=== PATIENT | male | born 1960 | race Caucasian/White ===

== ENCOUNTER → 2017-12-22 | Outpatient (CLI) | payer MEDICARE ==
[~2017-12-22] MED LIST: ASCO1ER; ASPI81EC PO; AZAT50 PO; AZATHIOPRINE 50 MG; AZATHIOPRINE PO; Ativan1 MG SL; BACL10; BACL10 PO; BACL20 PO; BACPOLTO; BISA5EC; BISA5EC PO; Bactrim Ds Tab1 EACH PO; CELE200 PO; CEPH500 PO; CLON.5; CLON1 PO; CLON2; CYCL10 PO; DILANTIN; DULO30; DULO60 PO; ENOX100I; ENOX120I SC; ENOX120I SQ; ENOX80I; ENOX80I SQ; ERGO400 PO; ESCI10; FLUT.05NI; HYDACE10B PO; HYDACE5 PO; HYDACE5325 PO; HYDR1TAB94 PO; ISON300; KLONOPIN; LEVE500 PO; LOVENOX; META800 PO; MULVITA; NORT25 PO; Norco 5-325 Ta1 EACH PO; OMEPRAZOLE MAGN20 MG PO; OXYACE5T PO; OXYC5; PHENY100ER; PHENY100ER PO; PRED20; PRED5; PREDNISONE; PREDNISONE 10 MG; PROC10; PYRI100; PYRI100 PO; PYRI50; RANI150; RANI150 PO; ROZEREM; RXOXYACE PO; TOPI100 PO; TOPI25C PO; TRAZ100; TRAZ100 PO; TRAZ50; TRAZ50 PO; TRAZODONE 100 MG; Vitamin C1000 M1 PO; WARF10; [UNRECOGNIZED DRUG - OTHER]; [UNRECOGNIZED DRUG - OTHER]; [UNRECOGNIZED DRUG - OTHER]; [UNRECOGNIZED DRUG - REMARK]
== END | disposition home or self-care (01) ==
LOC: LAB 14:45
DX: L03.312 Cellulitis of back [any part except buttock and flank] (principal)
CPT/HCPCS: 87070; 87205

== ENCOUNTER 2018-10-04 15:41 | Emergency (ER) | payer MEDICARE ==
[~2018-10-04] VITALS: Ht 180.3 cm; Wt 91.2 kg
== END 2018-10-04 16:45 | disposition home or self-care (01) ==
LOC: ER 15:41
DX: S62.306D Unspecified fracture of fifth metacarpal bone, right hand, subsequent encounter for fracture with routine healing (principal); X58.XXXD Exposure to other specified factors, subsequent encounter; Z88.6 Allergy status to analgesic agent; Z88.8 Allergy status to other drugs, medicaments and biological substances; Z79.899 Other long term (current) drug therapy; Z87.891 Personal history of nicotine dependence
CPT/HCPCS: 29125; 99282-25

== ENCOUNTER 2019-05-02 09:23 | Emergency (ER) | payer MEDICARE ==
[~2019-05-02] VITALS: Ht 177.8 cm; Wt 84.8 kg
[2019-05-02] MEDS ORDERED: Keflex500 MG PO (11:46)
== END 2019-05-02 11:55 | disposition home or self-care (01) ==
LOC: ER 09:23
DX: M79.89 Other specified soft tissue disorders (principal); Z88.6 Allergy status to analgesic agent; Z79.899 Other long term (current) drug therapy; Z87.891 Personal history of nicotine dependence
CPT/HCPCS: 93971; 99283-25

== ENCOUNTER 2019-07-25 09:55 | Emergency (ER) | payer MEDICARE ==
[~2019-07-25] VITALS: Ht 175.3 cm; Wt 83.9 kg
[~2019-07-25 09:55] MED LIST changes: +Keflex500 MG PO
[2019-07-25 10:59] LABS: BASOPHILS ABSOLUTE AUTO 0.01 K/mm3 (0.00-0.23); BASOPHILS PERCENT AUTO 0 % (0-2); EOSINOPHILS ABSOLUTE AUTO 0.01 K/mm3 (0.00-0.68); EOSINOPHILS PERCENT AUTO 0 % (0-6); Hematocrit 45.2 % (37.0-53.0); Hemoglobin 14.6 g/dL (13.5-17.5); IMMATURE GRAN ABSOLUTE AUTO 0.01 K/mm3 (0.00-0.10); IMMATURE GRAN PERCENT AUTO 0 % (0-1); LYMPHOCYTES ABSOLUTE AUTO 1.14 K/mm3 (0.84-5.20); LYMPHOCYTES PERCENT AUTO 20 % (21-46); MONOCYTES ABSOLUTE AUTO 0.44 K/mm3 (0.16-1.47); MONOCYTES PERCENT AUTO 8 % (4-13); Mean Corpuscular HGB 29.3 pg (26.0-34.0); Mean Corpuscular HGB Conc 32.3 g/dL (31.5-36.5); Mean Corpuscular Volume 91 fL (80-100); Mean Platelet Volume 10.2 fL (9.1-12.4); NEUTROPHILS ABSOLUTE AUTO 4.17 K/mm3 (1.96-9.15); NEUTROPHILS PERCENT AUTO 72 % (41-73); Platelet Count 121 K/mm3 (150-400); RDW Coefficient Variation 15.6 % (11.7-14.2); RDW Standard Deviation 51.8 fL (35.1-46.3); Red Blood Cell Count 4.99 M/mm3 (4.30-5.90); White Blood Cell Count 5.78 K/mm3 (4.00-11.30)
[2019-07-25 11:13] LABS: Alanine Aminotransfer (ALT/SGP 21 U/L (12-78); Albumin, Blood 4.5 g/dL (3.4-5.0); Albumin/Globulin Ratio 1.6 (0.8-1.8); Alk Phos 62 U/L (50-136); Anion Gap 7 mmol/L (6-16); Aspartate Aminotrans (AST/SGOT 23 U/L (12-37); Bilirubin, Total 0.7 mg/dL (0.1-1.0); Blood Urea Nitrogen 17 mg/dL (8-24); Bun/Creatinine Ratio 17.8 (12.0-20.0); CO2, Blood 23 mmol/L (21-32); Calcium, Blood 9.1 mg/dL (8.5-10.1); Chloride, Blood 110 mmol/L (98-108); Creatinine, Blood 0.95 mg/dL (0.60-1.20); Globulin, Blood 2.8 g/dL (2.2-4.0); Glomerular Filtration Rate >60 (60-); Glucose, Blood 97 mg/dL (70-99); Potassium, Blood 3.7 mmol/L (3.5-5.5); Sodium, Blood 140 mmol/L (136-145); Total Protein, Blood 7.3 g/dL (6.4-8.2)
[2019-07-25 17:09] LABS: Source, Urine Clean Catch
[2019-07-25 17:14] LABS: Bilirubin, Urine Neg (Neg); Blood, Urine 4+ (Neg); Glucose Qualitative, Urine Neg (Neg); Ketones, Urine 3+ (Neg); Leukocyte Esterase, Urine 1+ (Neg); Nitrite, Urine Neg (Neg); Protein, Urine 1+ (Neg); Urobilinogen, Urine NORM (Normal)
[2019-07-25 17:19] LABS: Appearance, Urine Clear (Clear); Color, Urine Yellow (P-Yellow)
[2019-07-25 17:20] LABS: Mucus Light (0-Heavy)
[2019-07-25 17:21] LABS: Bacteria Few /hpf; Squamous Epithelial Cells Rare /hpf (Few)
[2019-07-25] MEDS ORDERED: ONDA4ODT MM (18:27)
[2019-07-25] MEDS ORDERED: Norco 5-325 Ta1 EACH PO (18:27)
== END 2019-07-25 18:59 | disposition home or self-care (01) ==
LOC: ER 09:55
PROVIDERS: Emergency Medicine
DX: M35.2 Behcet's disease (principal); R10.9 Unspecified abdominal pain; I82.221 Chronic embolism and thrombosis of inferior vena cava; Z87.891 Personal history of nicotine dependence; Z88.6 Allergy status to analgesic agent; Z88.8 Allergy status to other drugs, medicaments and biological substances; Z79.899 Other long term (current) drug therapy
CPT/HCPCS: 36415; 74174; 80053; 81001; 83605; 83690; 85025; 87040; 87086; 93005; 93010; 96361; 96374-59; 99284-25; J3010; J7030; Q9967

== ENCOUNTER 2019-10-25 10:10 | Inpatient (IN) | payer MEDICARE ==
[~2019-10-25] VITALS: Ht 177.8 cm; Wt 66.0 kg
[~2019-10-25 10:10] MED LIST changes: -ENOX120I SC; +ENOX80I SC; +ONDA4ODT MM
[2019-10-25 10:31] LABS: BASOPHILS ABSOLUTE AUTO 0.01 K/mm3 (0.00-0.23); BASOPHILS PERCENT AUTO 0 % (0-2); EOSINOPHILS PERCENT AUTO 0 % (0-6); Hematocrit 45.9 % (37.0-53.0); Hemoglobin 15.2 g/dL (13.5-17.5); IMMATURE GRAN ABSOLUTE AUTO 0.05 K/mm3 (0.00-0.10); IMMATURE GRAN PERCENT AUTO 0 % (0-1); LYMPHOCYTES ABSOLUTE AUTO 0.58 K/mm3 (0.84-5.20); LYMPHOCYTES PERCENT AUTO 5 % (21-46); MONOCYTES ABSOLUTE AUTO 0.59 K/mm3 (0.16-1.47); MONOCYTES PERCENT AUTO 5 % (4-13); Mean Corpuscular HGB 29.4 pg (26.0-34.0); Mean Corpuscular HGB Conc 33.1 g/dL (31.5-36.5); Mean Corpuscular Volume 89 fL (80-100); Mean Platelet Volume 10.9 fL (9.1-12.4); NEUTROPHILS ABSOLUTE AUTO 11.54 K/mm3 (1.96-9.15); NEUTROPHILS PERCENT AUTO 90 % (41-73); Platelet Count 134 K/mm3 (150-400); RDW Coefficient Variation 16.3 % (11.7-14.2); RDW Standard Deviation 53.1 fL (35.1-46.3); Red Blood Cell Count 5.17 M/mm3 (4.30-5.90); White Blood Cell Count 12.77 K/mm3 (4.00-11.30)
[2019-10-25 10:44] LABS: Prothrombin Time Results 10.7 Sec (9.7-11.5)
[2019-10-25 10:53] LABS: Ethanol (Alcohol), Blood, Med 139 mg/dL
[2019-10-25] MEDS ORDERED: TAMSULOSIN HCL0.4 M1 PO (10:53)
[2019-10-25 10:54] LABS: Alanine Aminotransfer (ALT/SGP 30 U/L (12-78); Albumin, Blood 4.1 g/dL (3.4-5.0); Albumin/Globulin Ratio 1.3 (0.8-1.8); Alk Phos 67 U/L (50-136); Anion Gap 12 mmol/L (6-16); Aspartate Aminotrans (AST/SGOT 54 U/L (12-37); Bilirubin, Total 0.6 mg/dL (0.1-1.0); Blood Urea Nitrogen 16 mg/dL (8-24); Bun/Creatinine Ratio 17.2 (12.0-20.0); CO2, Blood 19 mmol/L (21-32); Calcium, Blood 8.5 mg/dL (8.5-10.1); Chloride, Blood 109 mmol/L (98-108); Creatinine, Blood 0.93 mg/dL (0.60-1.20); Globulin, Blood 3.1 g/dL (2.2-4.0); Glomerular Filtration Rate >60 (60-); Glucose, Blood 90 mg/dL (70-99); Sodium, Blood 140 mmol/L (136-145); Total Protein, Blood 7.2 g/dL (6.4-8.2)
[2019-10-25 12:41] LABS: Source, Urine Clean Catch
[2019-10-25 12:50] LABS: Bilirubin, Urine Neg (Neg); Blood, Urine 5+ (Neg); Glucose Qualitative, Urine Neg (Neg); Ketones, Urine 3+ (Neg); Leukocyte Esterase, Urine Neg (Neg); Nitrite, Urine Neg (Neg); Protein, Urine 1+ (Neg); Urobilinogen, Urine NORM (Normal)
[2019-10-25 13:01] LABS: Appearance, Urine Clear (Clear); Color, Urine Yellow (P-Yellow)
[2019-10-25 13:03] LABS: White Blood Cells, Urine 0-2 /hpf (0-5)
[2019-10-25 13:04] LABS: Bacteria Few /hpf; Squamous Epithelial Cells Rare /hpf (Few)
[2019-10-25 14:02] LABS: U Amphetamine Screen Not Detected; U Barbituate Screen Not Detected; U Methamphetamine Screen Not Detected
[2019-10-25 14:03] LABS: U Benzodiazapine Screen Not Detected; U Buprenorphine Screen Not Detected; U Cannabinoids Screen DETECTED; U Cocaine Screen Not Detected; U Methadone Screen Not Detected; U Opiates Screen Not Detected; U Oxycodone Screen Not Detected; U Phencyclidine Screen Not Detected; U Propoxyphene Screen Not Detected
[2019-10-25] MEDS ORDERED: Percocet 5-3251 EACH PO (14:04)
[2019-10-25] MEDS ORDERED: BUSP5 PO (14:24)
[2019-10-25] MEDS ORDERED: ATORVASTATIN CA40 MG PO (14:24)
[2019-10-25] MEDS ORDERED: BACL10 PO (14:25)
[2019-10-25] MEDS ORDERED: TRAZ150T57 PO (14:26)
[2019-10-25] MEDS ORDERED: Zantac150 MG PO (14:26)
--- NOTE | 2019-10-25 19:04 | NUR ---
ARRIVES TO FLOOR ABOUT 1740. ALERT. ORIENTED. DOES NOT KNOW DATE. COOPERATIVE. 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 PICS TAKEN OF BRUISES, ETC. BLIND RT EYE. LEFT EYELIDS SWOLLEN SHUT. STS CAN NOT FEEL EXT. WHEN LT.LEG TOUCHED IS ABLE TO MOVE SLIGHTLY. IS ABLE TO MOVE LEFT ARM SLIGHTLY. PATIENT UNSURE IF HE KNOWNS WHEN HE HAS TO URINATE. REQUEST HICKMAN. UNABLE TO FEEL BUTTONS SHAMPOOER LIGHT EVEN WHEN MONITOR STICKER PLACED SHAMPOOER LIGHT. REPORT TO NIGHT RN
--- NOTE | 2019-10-26 00:49 | NUR ---
PHYSICIAN CORRESPONDENCE APPROX 2100 STATED PATIENT HAD INDWELLING PLACED IN ED WHICH WAS TAKEN OUT R/T POSSIBLE D/C. EXPLAINED THAT PATIENT IS UNABLE TO USE A URINAL BY HIMSELF; IS NOT ABLE TO RELAX LEGS ENOUGH TO GET A URINAL THERE SO HE CAN USE IT. NEW ORDER FOR CONDOM CATH. ALSO EXPLAINED THAT PATIENT IS HAVING DIFFICULTY MOVING LUE IN COORDINATION WITH DIRECTION THAT IS GIVE; PT STATES THAT TYPICALLY HE CAN GET AROUND ON HIS OWN AND DO ALL OF HIS NORMAL ADLS. ON-CALL STATED THAT ATTENDING MAY WANT TO DO AN MRI TOMORROW.
--- NOTE | 2019-10-26 05:16 | NUR ---
SHIFT SUMMARY A/O, ABLE TO MAKE NEEDS KNOWN. COOPERATIVE WITH CARE. UNABLE TO USE CALL MAYBERRY; STATES CANNOT FEEL. C/O PAIN/DISCOMFORT TO NECK/SHOULDERS/ARMS RATED 7-9/10; FACE SCALE 2. SWELLING TO BILATERAL EYES; APPEARS TO HAVE DECREASED. PATIENT UNABLE TO DO ANY ADLS; WILL REQUIRE FEEDINGS/FULL CARE. STATES NEEDS TO VOID; UNABLE TO PLACE URINAL AT AN ANGLE TO WHERE HE CAN VOID, PLACE CONDOM CATH PER ON-CALL ORDERS (FELL OFF). PATIENT IS REQUESTING INDWELLING; EXPLAINED TO PATIENT THAT HE WOULD NEED TO DISCUSS THAT WITH HIS ATTENDING PHYSICIAN TODAY. INCONTINENT EPISODE OF BOWEL. CIWA 6-10 THIS SHIFT. VSS, SLIGHTLY FEBRILE. TELE RUNNING ST @ 108 PER PCU HOUSE VISITOR. BED IN LOWEST POSITION; ALARM ON. CALL LIGHT WITHIN REACH. WCTM. REPORT TO ONCOMING RN.
[2019-10-26 06:18] LABS: Alanine Aminotransfer (ALT/SGP 40 U/L (12-78); Albumin, Blood 3.7 g/dL (3.4-5.0); Albumin/Globulin Ratio 1.3 (0.8-1.8); Alk Phos 57 U/L (50-136); Anion Gap 9 mmol/L (6-16); Aspartate Aminotrans (AST/SGOT 107 U/L (12-37); Bilirubin, Total 0.7 mg/dL (0.1-1.0); Blood Urea Nitrogen 19 mg/dL (8-24); Bun/Creatinine Ratio 20.4 (12.0-20.0); CO2, Blood 18 mmol/L (21-32); Calcium, Blood 8.4 mg/dL (8.5-10.1); Chloride, Blood 113 mmol/L (98-108); Creatinine, Blood 0.93 mg/dL (0.60-1.20); Globulin, Blood 2.8 g/dL (2.2-4.0); Glomerular Filtration Rate >60 (60-); Glucose, Blood 96 mg/dL (70-99); Sodium, Blood 140 mmol/L (136-145); Total Protein, Blood 6.5 g/dL (6.4-8.2)
[2019-10-26 09:18] LABS: BASOPHILS ABSOLUTE AUTO 0.01 K/mm3 (0.00-0.23); BASOPHILS PERCENT AUTO 0 % (0-2); EOSINOPHILS PERCENT AUTO 0 % (0-6); Hemoglobin 14.1 g/dL (13.5-17.5); IMMATURE GRAN ABSOLUTE AUTO 0.03 K/mm3 (0.00-0.10); IMMATURE GRAN PERCENT AUTO 0 % (0-1); LYMPHOCYTES ABSOLUTE AUTO 1.01 K/mm3 (0.84-5.20); LYMPHOCYTES PERCENT AUTO 11 % (21-46); MONOCYTES ABSOLUTE AUTO 0.88 K/mm3 (0.16-1.47); MONOCYTES PERCENT AUTO 9 % (4-13); Mean Corpuscular HGB 29.4 pg (26.0-34.0); Mean Corpuscular HGB Conc 32.8 g/dL (31.5-36.5); Mean Corpuscular Volume 90 fL (80-100); NEUTROPHILS PERCENT AUTO 80 % (41-73); Platelet Count 95 K/mm3 (150-400); RDW Coefficient Variation 16.4 % (11.7-14.2); RDW Standard Deviation 53.9 fL (35.1-46.3); White Blood Cell Count 9.53 K/mm3 (4.00-11.30)
[2019-10-26 10:58] LABS: Source, Urine Catheter
[2019-10-26 11:07] LABS: Bilirubin, Urine Neg (Neg); Blood, Urine 2+ (Neg); Glucose Qualitative, Urine Neg (Neg); Ketones, Urine 4+ (Neg); Leukocyte Esterase, Urine Neg (Neg); Nitrite, Urine Neg (Neg); Protein, Urine Neg (Neg); Urobilinogen, Urine NORM (Normal)
[2019-10-26 11:53] LABS: Appearance, Urine Clear (Clear); Color, Urine Yellow (P-Yellow)
[2019-10-26 11:54] LABS: Bacteria Not Seen /hpf; Squamous Epithelial Cells Not Seen /hpf (Few)
--- NOTE | 2019-10-26 17:54 | NUR ---
PT HAS BEEN ALERT AND ORIENTED THROUGHOUT THIS SHIFT. PT HAD FAMILY IN THE ROOM FOR MUCH OF THE AFTERNOON. PT HAS HX OF STROKE AND HAS LIMITED USE OF HIS LEFT SIDE AT BASELINE. PT'S RIGHT ARM IS VERY RIGID AND PT HAS NO USE OF IT AT THIS TIME. HICKMAN CATHETER PLACED THIS SHIFT PER ORDERS FOR RETENTION, BLADDER SCAN >999 ML, OUTPUT 1400 ML UPON INSERTION. PT CONTINUES TO HAVE SEVERE PAIN IN HIS SHOULDERS AND HAS BEEN UNCOMFORTABLE FOR MOST OF THIS SHIFT. PT REPOSITIONED FREQUENTLY ATTEMPTING TO FIND COMFORT FOR THE PT. PT CURRENTLY ASLEEP IN BED.
--- NOTE | 2019-10-26 17:59 | NUR ---
Initial spiritual care note: Ike was talkative and expressive. He has a great deal of christianity remorse and spiritual questioning. Has been most recently affiliated with the [facility]. His suddenly several years ago. He had a stroke shortly after this loss and could not longer work. He has been living with his mom since. He is grieving loss of spouse, mobility, and sense of purpose. Ike responded well to gentle drapery counselor/spiritual direction. Our visit ended when family arrived and Tony asked me to return tomorrow.
--- NOTE | 2019-10-27 04:38 | NUR ---
SHIFT SUMMARY A/O, ABLE TO MAKE NEEDS KNOWN. COOPERATIVE WITH CARE. STILL UNABLE TO MOVE EXTREMITIES ON DEMAND; REMAINS UNABLE TO USE CALL LIGHT. C/O PAIN/DISCOMFORT TO SHOULDERS/ARMS; MEDICATED PER EMAR. APPEARED TO REST MUCH OF SHIFT. THIS AM DURING REPOSITIONING; NOTED RASH TO TRUNK/BACK, ARMPITS, AND GROIN REGION. HAS BEEN SWEATING OFF AND OF FOR A COUPLE OF DAYS. STATES DOES NOT ITCH AND IS TYPICALLY NOT ALLERGIC TO ANYTHING. CONSULTED WATCH TRAIN INSPECTOR WHOM STATED TO HAVE ATTENDING ADDRESS. NO ACUTE CHANGES NOTED OVERNIGHT. VSS/AFEBRILE. SLIGHTLY TACHY. BED IN LOWEST POSITION. WCTM. REPORT TO ONCOMING RN.
[2019-10-27 05:20] LABS: BASOPHILS ABSOLUTE AUTO 0.01 K/mm3 (0.00-0.23); BASOPHILS PERCENT AUTO 0 % (0-2); EOSINOPHILS ABSOLUTE AUTO 0.01 K/mm3 (0.00-0.68); EOSINOPHILS PERCENT AUTO 0 % (0-6); Hemoglobin 13.3 g/dL (13.5-17.5); IMMATURE GRAN ABSOLUTE AUTO 0.02 K/mm3 (0.00-0.10); IMMATURE GRAN PERCENT AUTO 0 % (0-1); LYMPHOCYTES ABSOLUTE AUTO 0.97 K/mm3 (0.84-5.20); LYMPHOCYTES PERCENT AUTO 13 % (21-46); MONOCYTES ABSOLUTE AUTO 0.57 K/mm3 (0.16-1.47); MONOCYTES PERCENT AUTO 8 % (4-13); Mean Corpuscular HGB Conc 32.4 g/dL (31.5-36.5); Mean Corpuscular Volume 90 fL (80-100); Mean Platelet Volume 11.6 fL (9.1-12.4); NEUTROPHILS ABSOLUTE AUTO 5.85 K/mm3 (1.96-9.15); NEUTROPHILS PERCENT AUTO 79 % (41-73); Platelet Count 73 K/mm3 (150-400); RDW Coefficient Variation 16.3 % (11.7-14.2); RDW Standard Deviation 53.2 fL (35.1-46.3); Red Blood Cell Count 4.58 M/mm3 (4.30-5.90); White Blood Cell Count 7.43 K/mm3 (4.00-11.30)
[2019-10-27 05:46] LABS: Albumin, Blood 3.3 g/dL (3.4-5.0); Anion Gap 8 mmol/L (6-16); Blood Urea Nitrogen 14 mg/dL (8-24); Bun/Creatinine Ratio 16.1 (12.0-20.0); CO2, Blood 19 mmol/L (21-32); Chloride, Blood 113 mmol/L (98-108); Creatinine, Blood 0.87 mg/dL (0.60-1.20); Glomerular Filtration Rate >60 (60-); Glucose, Blood 112 mg/dL (70-99); Phosphorus, Blood 1.6 mg/dL (2.5-4.9); Potassium, Blood 3.7 mmol/L (3.5-5.5); Sodium, Blood 140 mmol/L (136-145)
--- NOTE | 2019-10-27 17:42 | NUR ---
SHIFT SUMMARY PT AXO, COOPERATIVE WITH CARE THOUGH ANXIOUS AT TIMES. PT COMPLAINED OF "STRANGE, TIGHT" SENSATION IN HIS L. LEG. LEG APPEARED TO BE SPASMING, DR MCALUGHLIN NOTIFIED. VSS. PT BEDBOUND AND WEAK. PT NOT ABLE TO USE CALL LIGHT, CALLS OUT FOR ASSISTANCE. MEDICATED PER EMAR FOR PAIN. CIWA 3-4. THIS SHIFT. BED IN LOW POSITION. PT NEEDS ASSISTANCE WITH MEALS.
[2019-10-28 04:55] LABS: BASOPHILS ABSOLUTE AUTO 0.01 K/mm3 (0.00-0.23); BASOPHILS PERCENT AUTO 0 % (0-2); EOSINOPHILS ABSOLUTE AUTO 0.02 K/mm3 (0.00-0.68); EOSINOPHILS PERCENT AUTO 0 % (0-6); Hemoglobin 13.5 g/dL (13.5-17.5); IMMATURE GRAN ABSOLUTE AUTO 0.02 K/mm3 (0.00-0.10); IMMATURE GRAN PERCENT AUTO 0 % (0-1); LYMPHOCYTES ABSOLUTE AUTO 1.12 K/mm3 (0.84-5.20); LYMPHOCYTES PERCENT AUTO 13 % (21-46); MONOCYTES ABSOLUTE AUTO 0.74 K/mm3 (0.16-1.47); MONOCYTES PERCENT AUTO 9 % (4-13); Mean Corpuscular HGB 29.2 pg (26.0-34.0); Mean Corpuscular HGB Conc 32.1 g/dL (31.5-36.5); Mean Corpuscular Volume 91 fL (80-100); Mean Platelet Volume 11.2 fL (9.1-12.4); NEUTROPHILS ABSOLUTE AUTO 6.46 K/mm3 (1.96-9.15); NEUTROPHILS PERCENT AUTO 77 % (41-73); Platelet Count 84 K/mm3 (150-400); RDW Coefficient Variation 16.3 % (11.7-14.2); RDW Standard Deviation 54.1 fL (35.1-46.3); Red Blood Cell Count 4.63 M/mm3 (4.30-5.90); White Blood Cell Count 8.37 K/mm3 (4.00-11.30)
[2019-10-28 05:11] LABS: Albumin, Blood 3.4 g/dL (3.4-5.0); Anion Gap 9 mmol/L (6-16); Blood Urea Nitrogen 13 mg/dL (8-24); Bun/Creatinine Ratio 14.7 (12.0-20.0); CO2, Blood 21 mmol/L (21-32); Calcium, Blood 8.8 mg/dL (8.5-10.1); Chloride, Blood 111 mmol/L (98-108); Creatinine, Blood 0.88 mg/dL (0.60-1.20); Glomerular Filtration Rate >60 (60-); Glucose, Blood 96 mg/dL (70-99); Potassium, Blood 3.9 mmol/L (3.5-5.5); Sodium, Blood 141 mmol/L (136-145)
--- NOTE | 2019-10-28 06:01 | NUR ---
SHIFT SUMMARY PT HAS BEEN AWAKE OFF AND ON T/O THE NIGHT. HE IS RESTLESS AND ANXIOUS IN THE EARLY HOURS OF THE MORNING. HE CALLS OUT FOR STAFF FREQUENTLY. LEFT EYE IS BRUISED WITH DRAINAGE, PT REQUESTS HIS EYE TO BE WIPED OFTEN. MEDICATED EYE DROPS PER ORDERS. PT COMPLAINS OF SHOULDER, NECK AND LEG PAIN. MEDICATED PER EMAR. PT HAS PROFOUND WEAKNESS X4 EXT. UNABLE TO LIFT HIS HEAD OR EXT. PT A/OX4, AND PLESANT WITH STAFF AND CARE. PT REQUESTS TO HAVE SOMEONE SIT WITH HIM TO DISTRACT HIM FROM THE PAIN DURING THE DAY. THERE HAVE BEEN NO ACUTE CHANGES. BED IN LOWEST POSITION, CALL LIGHT WITHIN REACH. WILL CONTINUE TO MONITOR AND REPORT TO ONCOMING RN.
--- NOTE | 2019-10-28 15:12 | NUR ---
SHIFT SUMMARY PT IS A/O X 4 WITH OCCASIONAL C/O OF GENERALIZED PAIN. HE STATES THAT THEY TYLENOL IS NOT EFFECTIVE. BUT TRAMADOL IS. HE WORKED WITH THERAPY THIS MORNING WHO GOT HIM UP TO THE RECLINER AND THEN AFTER LUNCH 3 OF US GOT HIS BACK TO BED WITH THE LIFT. HE WAS NOT ABLE TO ASSIST AT ALL AND HE IS A TOTAL ASSIST. BRUSING AND ABRASIONS REMAIN THROUGHOUT TO HIS FACE AND EXTREMITIES. TELE WAS DCD. HICKMAN IS PATENT WITH CLEAR YELLOW URINE OUTPUT. HES MILDLY SWEATY AND CLAMMY BUT HAS NO OTHER POSITIVE SYMPTOMS ON HIS CIWA EVAL. PT IS ABLE TO MAKE HIS NEEDS KNOWN AND IS COMPLIANT WITH HIS CARE.
[2019-10-28] MEDS ORDERED: TRAM50 PO (16:11)
[2019-10-28] MEDS ORDERED: CIPDEXSU LEFTEYE (16:11)
[2019-10-28] MEDS ORDERED: DULO60 PO (16:11)
== END 2019-10-28 17:40 | DRG 897 ==
LOC: ER 10:10 → MEDS 15:16
PROVIDERS: Emergency Medicine; Nurse Practitioner Acute Care; ADMIT Family Medicine
DX: F10.129 Alcohol abuse with intoxication, unspecified (principal); E87.2 Acidosis; M51.36 Other intervertebral disc degeneration, lumbar region; D69.6 Thrombocytopenia, unspecified; E83.39 Other disorders of phosphorus metabolism; F41.1 Generalized anxiety disorder; N40.1 Benign prostatic hyperplasia with lower urinary tract symptoms; R33.8 Other retention of urine; G40.909 Epilepsy, unspecified, not intractable, without status epilepticus; G89.29 Other chronic pain; Z91.81 History of falling; Z86.718 Personal history of other venous thrombosis and embolism; Z86.73 Personal history of transient ischemic attack (TIA), and cerebral infarction without residual deficits; Z87.891 Personal history of nicotine dependence
CPT/HCPCS: 36415; 51702; 70450; 70551; 71260; 72125; 72148; 73060; 73090; 74177; 80053; 80069; 80201; 81001; 83605; 83690; 83735; 85025; 85610; 85730; 86850; 86900; 86901; 93005; 93010; 93971; 96374-59; 96375-59; 97110; 97112; 97163; 97167; 97530; 97535; 99285-25; A9270; G0480; J1644; J1650; J3010; J3411; J3475; J7030; J7042; J7500; Q9967

== ENCOUNTER → 2020-03-27 | Outpatient (CLI) | payer MEDICARE ==
[~2020-03-27] MED LIST changes: +ATORVASTATIN CA40 MG PO; +BUSP5 PO; +CIPDEXSU LEFTEYE; +Percocet 5-3251 EACH PO; +TAMSULOSIN HCL0.4 M1 PO; +TRAM50 PO; +TRAZ150T57 PO; +Zantac150 MG PO
[2020-03-28 01:49] LABS: BASOPHILS ABSOLUTE AUTO 0.01 K/mm3 (0.00-0.23); BASOPHILS PERCENT AUTO 0 % (0-2); EOSINOPHILS ABSOLUTE AUTO 0.04 K/mm3 (0.00-0.68); EOSINOPHILS PERCENT AUTO 1 % (0-6); Hematocrit 45.4 % (37.0-53.0); Hemoglobin 13.8 g/dL (13.5-17.5); IMMATURE GRAN ABSOLUTE AUTO 0.01 K/mm3 (0.00-0.10); IMMATURE GRAN PERCENT AUTO 0 % (0-1); LYMPHOCYTES ABSOLUTE AUTO 1.76 K/mm3 (0.84-5.20); LYMPHOCYTES PERCENT AUTO 32 % (21-46); MONOCYTES ABSOLUTE AUTO 0.73 K/mm3 (0.16-1.47); MONOCYTES PERCENT AUTO 13 % (4-13); Mean Corpuscular HGB 26.6 pg (26.0-34.0); Mean Corpuscular HGB Conc 30.4 g/dL (31.5-36.5); Mean Corpuscular Volume 88 fL (80-100); Mean Platelet Volume 11.4 fL (9.1-12.4); NEUTROPHILS ABSOLUTE AUTO 3.03 K/mm3 (1.96-9.15); NEUTROPHILS PERCENT AUTO 54 % (41-73); Platelet Count 144 K/mm3 (150-400); RDW Coefficient Variation 17.2 % (11.7-14.2); RDW Standard Deviation 55.1 fL (35.1-46.3); Red Blood Cell Count 5.19 M/mm3 (4.30-5.90); White Blood Cell Count 5.58 K/mm3 (4.00-11.30)
== END | disposition home or self-care (01) ==
LOC: LAB UVN 21:00
PROVIDERS: Nurse Practitioner Adult Health
DX: I69.351 Hemiplegia and hemiparesis following cerebral infarction affecting right dominant side (principal); Z86.718 Personal history of other venous thrombosis and embolism
CPT/HCPCS: 85025

== ENCOUNTER → 2020-03-28 | Outpatient (CLI) | payer MEDICARE, OTHER ==
[~2020-03-28] MED LIST changes: +ACET325 PO; +BISA10S PR; +CLIN300 PO; +COLACE100 MG PO; +ENOX60I SC; +FLEET ENEMA133 ML PR; +GABA300 PO; +GUAI600T33 PO; +HEALTH SHAKE PO; +LIDO700A20 TOP; +MELA3 PO; +METO25 PO; +METO25ER PO; +MILK OF MA400 MG/51 PO; +OMEP20ER PO; +OXYC10TA19 PO; +Percocet 10-321 EACH PO; +TOPI100; +ZYRTEC10 M2 PO
[2020-03-28 05:56] LABS: Anion Gap 3 mmol/L (6-16); Blood Urea Nitrogen 19 mg/dL (8-24); Bun/Creatinine Ratio 22.4 (12.0-20.0); CO2, Blood 29 mmol/L (21-32); Calcium, Blood 9.2 mg/dL (8.5-10.1); Chloride, Blood 110 mmol/L (98-108); Creatinine, Blood 0.85 mg/dL (0.60-1.20); Glomerular Filtration Rate >60 (60-); Glucose, Blood 87 mg/dL (70-99); Potassium, Blood 3.9 mmol/L (3.5-5.5); Sodium, Blood 142 mmol/L (136-145)
== END | disposition home or self-care (01) ==
LOC: LAB UVN 05:35 → EDSTATUS 09:10
PROVIDERS: Nurse Practitioner Adult Health
DX: I69.351 Hemiplegia and hemiparesis following cerebral infarction affecting right dominant side (principal); Z86.718 Personal history of other venous thrombosis and embolism
CPT/HCPCS: 80048

== ENCOUNTER 2020-07-05 13:59 | Inpatient (IN) | payer MEDICARE, OTHER ==
[~2020-07-05] VITALS: Ht 177.8 cm; Wt 82.8 kg
[~2020-07-05 13:59] MED LIST changes: -ACET325 PO; -ATORVASTATIN CA40 MG PO; -COLACE100 MG PO; -Flexeril5 MG PO; -GABA300 PO; -HYDROCODONE-AC1 EAC8 PO; -METO25ER PO; -Milk Of Ma400 MG/5 M PO; -OXYCONTIN10 MG PO; -TAMSULOSIN HCL0.4 M1 PO; -TOPI50 PO; -ZYRTEC10 M2 PO
[2020-07-05 14:35] LABS: BASOPHILS ABSOLUTE AUTO 0.01 K/mm3 (0.00-0.23); BASOPHILS PERCENT AUTO 0 % (0-2); EOSINOPHILS ABSOLUTE AUTO 0.03 K/mm3 (0.00-0.68); EOSINOPHILS PERCENT AUTO 1 % (0-6); IMMATURE GRAN ABSOLUTE AUTO 0.03 K/mm3 (0.00-0.10); IMMATURE GRAN PERCENT AUTO 1 % (0-1); LYMPHOCYTES ABSOLUTE AUTO 0.69 K/mm3 (0.84-5.20); LYMPHOCYTES PERCENT AUTO 11 % (21-46); MONOCYTES ABSOLUTE AUTO 0.89 K/mm3 (0.16-1.47); MONOCYTES PERCENT AUTO 15 % (4-13); Mean Corpuscular HGB 27.1 pg (26.0-34.0); Mean Corpuscular HGB Conc 30.5 g/dL (31.5-36.5); Mean Corpuscular Volume 89 fL (80-100); Mean Platelet Volume 10.6 fL (9.1-12.4); NEUTROPHILS ABSOLUTE AUTO 4.39 K/mm3 (1.96-9.15); NEUTROPHILS PERCENT AUTO 73 % (41-73); NRBC ABSOLUTE 0.02 K/mm3 (0.00-0.02); NRBC Auto 0.3 /100 WBC (0.0-0.2); Platelet Count 215 K/mm3 (150-400); RDW Coefficient Variation 15.5 % (11.7-14.2); RDW Standard Deviation 49.8 fL (35.1-46.3); Red Blood Cell Count 2.14 M/mm3 (4.30-5.90); White Blood Cell Count 6.04 K/mm3 (4.00-11.30)
[2020-07-05 14:37] LABS: Hemoglobin 5.8 g/dL (13.5-17.5)
[2020-07-05 14:52] LABS: Alanine Aminotransfer (ALT/SGP 16 U/L (12-78); Albumin, Blood 3.1 g/dL (3.4-5.0); Albumin/Globulin Ratio 0.8 (0.8-1.8); Alk Phos 60 U/L (50-136); Anion Gap 7 mmol/L (6-16); Aspartate Aminotrans (AST/SGOT 22 U/L (12-37); Bilirubin, Total 1.9 mg/dL (0.1-1.0); Blood Urea Nitrogen 16 mg/dL (8-24); Bun/Creatinine Ratio 20.5 (12.0-20.0); CO2, Blood 26 mmol/L (21-32); Calcium, Blood 8.7 mg/dL (8.5-10.1); Chloride, Blood 102 mmol/L (98-108); Creatinine, Blood 0.78 mg/dL (0.60-1.20); Globulin, Blood 3.8 g/dL (2.2-4.0); Glomerular Filtration Rate >60 (60-); Glucose, Blood 118 mg/dL (70-99); Potassium, Blood 3.8 mmol/L (3.5-5.5); Sodium, Blood 135 mmol/L (136-145); Total Protein, Blood 6.9 g/dL (6.4-8.2)
[2020-07-05] MEDS ORDERED: Flexeril5 MG PO (15:59)
[2020-07-05] MEDS ORDERED: BACL20 PO (15:59)
[2020-07-05] MEDS ORDERED: HYDROCODONE-AC1 EAC8 PO (16:00)
[2020-07-05] MEDS ORDERED: AZAT50 PO (16:01)
[2020-07-05] MEDS ORDERED: ATORVASTATIN CA40 MG PO (16:02)
[2020-07-05] MEDS ORDERED: DULO60 PO (16:02)
[2020-07-05] MEDS ORDERED: TOPI50 PO (16:02)
[2020-07-05] MEDS ORDERED: TAMSULOSIN HCL0.4 M1 PO (16:03)
[2020-07-05] MEDS ORDERED: TRAZ100 PO (16:03)
[2020-07-05] MEDS ORDERED: METO25ER PO (16:04)
[2020-07-05] MEDS ORDERED: GABA300 PO (16:04)
[2020-07-05] MEDS ORDERED: COLACE100 MG PO (16:16)
[2020-07-05] MEDS ORDERED: ACET325 PO (16:17)
[2020-07-05] MEDS ORDERED: Milk Of Ma400 MG/5 M PO (16:17)
[2020-07-05] MEDS ORDERED: ZYRTEC10 M2 PO (16:18)
[2020-07-05 17:27] LABS: Percent Saturation 11.9 % (20.0-50.0)
[2020-07-05] MEDS ORDERED: OXYCONTIN10 MG PO (19:06)
[2020-07-05] MEDS ORDERED: HYDR1TAB94 PO (19:11)
--- NOTE | 2020-07-05 22:28 | NUR ---
ASSUMED CARE OF PATIENT AT APPROXIMATELY 1915 FROM MAURICE Saunders RN. PATIENT NEW ADMIT TO PCU BEFORE I ASSUMED CARE. PATIENT ALERT; ORIENTED TO NAME, , LOCATION AND FOLLOWING DIRECTIONS. PATIENT REPORTS PAIN IN LEGS CHRONIC AND NEW; REPORTS TAKES TYLENOL AT HOME BUT DOESNT WORK; MEDICATED PER EMAR; REFUSED TYLENOL; REPOSISTION; REFUSING SOME INTERVENTIONS. PATIENT REPORTS UNABLE TO MOVE RIGHT SIDE; SPASMS IN RIGHT LEG; ABLE TO USE LEFT ARM AND LEG; WEAKNESS NOTED. ADMISSION COMPLETED. 2ND UNIT OF BLOOD STARTED; THIS RN STAYED IN ROOM FOR THE FIRST 15 MINUTES; NO S/S OF REACTION NOTED. MAGAZINE SUPERVISOR [facility] REC. ST W/ BBB ON TELE; OXYGEN SATURATION ABOVE 90% ON ROOM AIR. PATIENT CURRENTLY RESTING IN BED; CALL LIGHT IN REACH; BED IN LOWEST POSISTION; BED ALARM ON; WILL CONTINUE TO MONITOR AND ASSESS UNTIL END OF SHIFT.
[2020-07-05 23:45] LABS: Hematocrit 23.2 % (37.0-53.0); Hemoglobin 7.4 g/dL (13.5-17.5); Mean Corpuscular HGB 27.9 pg (26.0-34.0); Mean Corpuscular HGB Conc 31.9 g/dL (31.5-36.5); Mean Corpuscular Volume 88 fL (80-100); Mean Platelet Volume 10.4 fL (9.1-12.4); Platelet Count 235 K/mm3 (150-400); RDW Coefficient Variation 14.9 % (11.7-14.2); RDW Standard Deviation 47.1 fL (35.1-46.3); Red Blood Cell Count 2.65 M/mm3 (4.30-5.90); White Blood Cell Count 6.49 K/mm3 (4.00-11.30)
[2020-07-06 04:21] LABS: BASOPHILS ABSOLUTE AUTO 0.01 K/mm3 (0.00-0.23); BASOPHILS PERCENT AUTO 0 % (0-2); EOSINOPHILS ABSOLUTE AUTO 0.03 K/mm3 (0.00-0.68); EOSINOPHILS PERCENT AUTO 1 % (0-6); Hematocrit 26.9 % (37.0-53.0); Hemoglobin 8.2 g/dL (13.5-17.5); IMMATURE GRAN ABSOLUTE AUTO 0.04 K/mm3 (0.00-0.10); IMMATURE GRAN PERCENT AUTO 1 % (0-1); LYMPHOCYTES PERCENT AUTO 16 % (21-46); MONOCYTES ABSOLUTE AUTO 0.97 K/mm3 (0.16-1.47); MONOCYTES PERCENT AUTO 17 % (4-13); Mean Corpuscular HGB 27.2 pg (26.0-34.0); Mean Corpuscular HGB Conc 30.5 g/dL (31.5-36.5); Mean Corpuscular Volume 89 fL (80-100); Mean Platelet Volume 10.7 fL (9.1-12.4); NEUTROPHILS ABSOLUTE AUTO 3.87 K/mm3 (1.96-9.15); NEUTROPHILS PERCENT AUTO 66 % (41-73); Platelet Count 238 K/mm3 (150-400); RDW Coefficient Variation 15.3 % (11.7-14.2); RDW Standard Deviation 48.4 fL (35.1-46.3); Red Blood Cell Count 3.02 M/mm3 (4.30-5.90); White Blood Cell Count 5.82 K/mm3 (4.00-11.30)
--- NOTE | 2020-07-06 06:19 | NUR ---
PATIENT SLEPT ABOUT NINE HOURS LAST NIGHT. YELLED OUT INTO HALLWAY INSTEAD OF USING CALL LIGHT; FORGETFUL AT TIMES; INCONTINENT OF LARGE AMOUNTS OF URINE. HEMOGLOBIN ABOUT 8 WITH AM LABS. VSS. WILL CONTINUE TO MONITOR AND ASSESS UNTIL END OF SHIFT.
[2020-07-06 14:06] LABS: International Normalized Ratio 0.99; Prothrombin Time Results 10.6 Sec (9.7-11.5)
[2020-07-06 16:14] LABS: Hematocrit 23.5 % (37.0-53.0); Hemoglobin 7.3 g/dL (13.5-17.5)
[2020-07-06 16:35] LABS: Hematocrit 23.5 % (37.0-53.0); Hemoglobin 7.2 g/dL (13.5-17.5); Mean Corpuscular HGB 27.5 pg (26.0-34.0); Mean Corpuscular HGB Conc 30.6 g/dL (31.5-36.5); Mean Corpuscular Volume 90 fL (80-100); Mean Platelet Volume 10.6 fL (9.1-12.4); Platelet Count 262 K/mm3 (150-400); RDW Coefficient Variation 15.7 % (11.7-14.2); RDW Standard Deviation 50.4 fL (35.1-46.3); Red Blood Cell Count 2.62 M/mm3 (4.30-5.90); White Blood Cell Count 7.08 K/mm3 (4.00-11.30)
--- NOTE | 2020-07-06 18:51 | NUR ---
SHIFT SUMMARY- PT TRANSFERED TO MEDICAL FLOOR FROM PCU. PLAN WAS TO TRANSFER THE PT TO MEDICAL FLOOR START HEPARIN DRIP THEN PT TO DC BACK TO [facility] TOMORROW IF H&H REMAINS STABLE, PT TO DISCHARGE ON LOVENOX. HOWEVER IV HEPARIN WAS DC'D H&H RECHECK ORDERED FOR 2200 TONIGHT, HGB HAD DROPPED FROM THIS MORNING TO THE START OF THE HEPARIN DRIP. LAST HGB WAS 7.3. PT C/O MUSCLE SPASMS THAT WERER DRIVING HIM "CRAZY." PT DENIED PAIN BUT APPEARED TO BE PAINFUL. PT MEDICATED WITH TRAMADOL AND THE SPASMS CALMED, VISIBLY, AND THE PT STATED THE PAIN WAS BETTER. CALLED [facility] AND HAD THE PT CELL PHONE SENT TO THE HOSPITAL AT HIS REQUEST PT PHONE AND ROOF BOLTER HELPER ARE NOW IN HIS ROOM AND HE IS TALKING TO HIS BROTHER ON THE PHONE. PT ALERT AND ORIENTED, D/T SPINAL CORD INJURY PT UNABLE TO MOBILIZE SAFELY. Q2 TURNS THE PT WILL ALLOW AND TOLLERATE. PT IV IN THE RIGHT AC SL. CALL LIGHT IN REACH. WILL PASS ALL ON IN REPORT TO NIGHT RN.
--- NOTE | 2020-07-06 19:15 | NUR ---
ASSUMED CARE RECEIVED REPORT FROM KEYSHAWN SARGENT. ASSUMED CARE OF PT. PT LYING IN BED, NO ACUTE DISTRESS NOTED. NO C/O PAIN OR DISCOMFORT AT THIS TIME. CALL LIGHT, POSSESSIONS IN REACH, BED IN LOWEST POSITION WITH ALARMS ON. WILL CONTINUE TO MONITOR AND PROVIDE CARE NEEDED T/O NIGHT.
[2020-07-06 22:09] LABS: BASOPHILS ABSOLUTE AUTO 0.02 K/mm3 (0.00-0.23); BASOPHILS PERCENT AUTO 0 % (0-2); EOSINOPHILS ABSOLUTE AUTO 0.04 K/mm3 (0.00-0.68); EOSINOPHILS PERCENT AUTO 1 % (0-6); Hematocrit 23.7 % (37.0-53.0); Hemoglobin 7.3 g/dL (13.5-17.5); IMMATURE GRAN ABSOLUTE AUTO 0.05 K/mm3 (0.00-0.10); IMMATURE GRAN PERCENT AUTO 1 % (0-1); LYMPHOCYTES PERCENT AUTO 14 % (21-46); MONOCYTES ABSOLUTE AUTO 1.14 K/mm3 (0.16-1.47); MONOCYTES PERCENT AUTO 16 % (4-13); Mean Corpuscular HGB 27.7 pg (26.0-34.0); Mean Corpuscular HGB Conc 30.8 g/dL (31.5-36.5); Mean Corpuscular Volume 90 fL (80-100); Mean Platelet Volume 10.4 fL (9.1-12.4); NEUTROPHILS ABSOLUTE AUTO 4.98 K/mm3 (1.96-9.15); NEUTROPHILS PERCENT AUTO 69 % (41-73); Platelet Count 252 K/mm3 (150-400); RDW Coefficient Variation 15.6 % (11.7-14.2); Red Blood Cell Count 2.64 M/mm3 (4.30-5.90); White Blood Cell Count 7.23 K/mm3 (4.00-11.30)
--- NOTE | 2020-07-07 04:23 | NUR ---
SHIFT SUMMARY PT A&O TO SELF, LOCATION, EVENT, SURROUNDINGS. USES CALL LIGHT ON OCCASION, OTHERWISE YELLS OUT FOR HELP. PT DID NOT SLEEP MUCH T/O NIGHT, RESTLESS. C/O DISCOMFORT TO BLE AND CERVICAL SPINE REGION, REPOSITIONED TOLERATED, MEDICATED FOR PAIN PER EMAR, AND OFFERED K-PACK FOR HEAT THERAPY. INCONTINENT OF LARGE AMOUNTS OF URINE. REFUSING REPOSITIONING AT TIMES. GROSS MOVEMENT TO LT SIDE REMAINS PRESENT, NO MOVEMENT PRESENT ON RT SIDE. VSS. AM LABS PENDING AT THIS POINT. PT ATTEMPTING TO SLEEP AT THIS TIME. CALL LIGHT, POSSESSIONS IN REACH, BED IN LOWEST POSITION WITH SAFETY ALARMS ON. WILL CONTINUE TO MONITOR AND ASSESS UNTIL DAY RN ASSUMES CARE.
[2020-07-07 05:29] LABS: Anion Gap 5 mmol/L (6-16); Blood Urea Nitrogen 21 mg/dL (8-24); Bun/Creatinine Ratio 23.9 (12.0-20.0); CO2, Blood 26 mmol/L (21-32); Calcium, Blood 8.8 mg/dL (8.5-10.1); Chloride, Blood 105 mmol/L (98-108); Creatinine, Blood 0.88 mg/dL (0.60-1.20); Glomerular Filtration Rate >60 (60-); Glucose, Blood 89 mg/dL (70-99); Potassium, Blood 3.5 mmol/L (3.5-5.5); Sodium, Blood 136 mmol/L (136-145)
[2020-07-07 07:51] LABS: Hematocrit 23.8 % (37.0-53.0); Hemoglobin 7.3 g/dL (13.5-17.5); Mean Corpuscular HGB 27.5 pg (26.0-34.0); Mean Corpuscular HGB Conc 30.7 g/dL (31.5-36.5); Mean Corpuscular Volume 90 fL (80-100); Mean Platelet Volume 10.9 fL (9.1-12.4); Platelet Count 265 K/mm3 (150-400); RDW Coefficient Variation 15.8 % (11.7-14.2); RDW Standard Deviation 50.7 fL (35.1-46.3); Red Blood Cell Count 2.65 M/mm3 (4.30-5.90); White Blood Cell Count 6.21 K/mm3 (4.00-11.30)
[2020-07-07 15:53] LABS: Hematocrit 24.7 % (37.0-53.0); Hemoglobin 7.6 g/dL (13.5-17.5); Mean Corpuscular HGB 27.5 pg (26.0-34.0); Mean Corpuscular HGB Conc 30.8 g/dL (31.5-36.5); Mean Corpuscular Volume 90 fL (80-100); Mean Platelet Volume 10.2 fL (9.1-12.4); Platelet Count 265 K/mm3 (150-400); RDW Standard Deviation 50.2 fL (35.1-46.3); Red Blood Cell Count 2.76 M/mm3 (4.30-5.90); White Blood Cell Count 5.92 K/mm3 (4.00-11.30)
--- NOTE | 2020-07-07 19:42 | NUR ---
SHIFT SUMMARY- PT HGB REMAINED STABLE ENOUGH TODAY THAT THE HEPARIN DRIP WAS AGAIN STARTED. PLAN IS TO POSSIBLY DC TOMORROW TO [facility] IF THE PT HGB REMAINS STABLE. THERE ARE NOW 2 ORDERS FOR A RAPID COVID, HOWEVER THE TEST MUST BE DONE ON THE DAY OF DISCHARGE SO SAMPLE NOT YET COLLECTED. PT HAS HAD DISCOMFORT ON AND OFF T/O THE DAY, HE ALLOWED REPOSITIONING TODAY, MEPILEX PLACED ON COCCYX FOR PREVENTION. PT VOIDS INCONTINENTLY BUT CALLS ONCE HE HAS GONE. PT IN BED CALL LIGHT IN REACH.
[2020-07-08 05:18] LABS: BASOPHILS ABSOLUTE AUTO 0.02 K/mm3 (0.00-0.23); BASOPHILS PERCENT AUTO 0 % (0-2); EOSINOPHILS ABSOLUTE AUTO 0.02 K/mm3 (0.00-0.68); EOSINOPHILS PERCENT AUTO 0 % (0-6); Hematocrit 25.3 % (37.0-53.0); Hemoglobin 7.6 g/dL (13.5-17.5); IMMATURE GRAN ABSOLUTE AUTO 0.04 K/mm3 (0.00-0.10); IMMATURE GRAN PERCENT AUTO 1 % (0-1); LYMPHOCYTES ABSOLUTE AUTO 1.08 K/mm3 (0.84-5.20); LYMPHOCYTES PERCENT AUTO 20 % (21-46); MONOCYTES ABSOLUTE AUTO 0.71 K/mm3 (0.16-1.47); MONOCYTES PERCENT AUTO 13 % (4-13); Mean Corpuscular HGB 27.4 pg (26.0-34.0); Mean Corpuscular Volume 91 fL (80-100); Mean Platelet Volume 10.4 fL (9.1-12.4); NEUTROPHILS ABSOLUTE AUTO 3.55 K/mm3 (1.96-9.15); NEUTROPHILS PERCENT AUTO 66 % (41-73); Platelet Count 251 K/mm3 (150-400); RDW Coefficient Variation 16.4 % (11.7-14.2); RDW Standard Deviation 51.9 fL (35.1-46.3); Red Blood Cell Count 2.77 M/mm3 (4.30-5.90); White Blood Cell Count 5.42 K/mm3 (4.00-11.30)
--- NOTE | 2020-07-08 08:05 | NUR ---
SUMMARY PT WOULD PUSH CALL BUTTON AT TIMES TONIGHT WHEN NURSING WOULD GO TO ROOM AND NOTE PT ASLEEP WHEN ASKED WHAT PT NEEDING, HE WOULD ASK WHY WE WOKE HIM.
--- NOTE | 2020-07-08 20:30 | NUR ---
SHIFT SUMMARY- PT HAD ORDERS TO DISCHARGE BACK TO [facility]. PT WAS NOT DISCHARGED D/T SOME SORT OF PLANNING ISSUE WAITING FOR INSURANCE. PT STILL ON A HEPARIN DRIP, SQ DOSE OF LOVENOX 60 TO BE GIVEN AT THE TIME THE PT IS DISCHARGED. COVID TEST COMPLETED THIS MORNING. PT MEDICATED FOR PAIN PRN SEE EMAR FOR DETAILS.
--- NOTE | 2020-07-09 04:08 | NUR ---
SHIFT SUMMARY PT HAS HAD NO ACUTE CHANGES THIS SHIFT, A&O, PLEASANT, COOPERATIVE W/CARE, MEDICATED 1X FOR PAIN, NO OTHER C/O ANY KIND, PT SLEPT T/O THE NIGHT, SLEEPING AT THIS TIME, CALL LIGHT IN REACH, BED ALARM ACTIVE, WILL CONT TO MONITOR UNTIL REPORT GIVEN TO DAY RN.
[2020-07-09] MEDS ORDERED: ENOX60I SC (11:47)
--- NOTE | 2020-07-09 14:27 | NUR ---
HEPARIN DRISAK SMITH'Bruno AT 1415 IN PREPARATION FOR DISCHARGE. HE IS UNCOMFORTABLE A LOT OF THE TIME D/T HIS ACHEY PAINFUL R LEG AND HIP. I JUST GAVE HIM TRAMADOL AND TYLENOL TOGETHER. WE HAVE BEEN TURNING HIM FREQUENTLY BUT HE HURTS IN EVERY POSITION. HE WILL BE PICKED UP BY W/C CAITIE AT 1630. WE WILL USE A LIFT TO GET HIM INTO A RECLINING W/C.
--- NOTE | 2020-07-09 18:08 | NUR ---
DISCHARGED TO [facility] AT 1740 BY W/Jamal BLOOD. WE USED A LIFT TO GET HIM IN THE CHAIR. HE TOLERATED THE LIFT WELL. REPORT CALLED TO [facility]. HAIR SHAMPOOED PRIOR TO LEAVING. HE HAD 1 INCONTINENT LIQUID STOOL TODAY AND A FEW CONCENTRATED INCONTINENT URINES. HEPARIN DRIP STOPPED AT 1415. KAIA NOTIFIED THAT HE WILL NEED A LOVENOX SHOT TONIGHT. HIS PHONE AND SR. STRATEGIC SOURCING MANAGER WENT WITH HIM.
== END 2020-07-09 17:42 | disposition home or self-care (01) | DRG 811 ==
LOC: ER 13:59 → MEDS 15:53 → PCU 15:53 → MEDS 07-06 12:45 → ENPENDDIS 07-08 08:54 → EDPENDDIS 07-08 08:54 → MEDS 07-09 17:42
PROVIDERS: Emergency Medicine; Family Medicine; ADMIT Hospitalist
PROC: 30233N1 Transfusion of Nonautologous Red Blood Cells into Peripheral Vein, Percutaneous Approach (ICD-10-PCS; principal; 2020-07-05)
DX: D62 Acute posthemorrhagic anemia (principal); E43 Unspecified severe protein-calorie malnutrition; M35.2 Behcet's disease; G82.20 Paraplegia, unspecified; Z20.828 Contact with and (suspected) exposure to other viral communicable diseases; S70.11XA Contusion of right thigh, initial encounter; R41.0 Disorientation, unspecified; T50.915A Adverse effect of multiple unspecified drugs, medicaments and biological substances, initial encounter; M48.00 Spinal stenosis, site unspecified; N40.0 Benign prostatic hyperplasia without lower urinary tract symptoms; G40.909 Epilepsy, unspecified, not intractable, without status epilepticus; M54.9 Dorsalgia, unspecified; G89.29 Other chronic pain; F41.1 Generalized anxiety disorder; T82.868D Thrombosis due to vascular prosthetic devices, implants and grafts, subsequent encounter; W06.XXXA Fall from bed, initial encounter; Z68.25 Body mass index [BMI] 25.0-25.9, adult; T14.8XXS Other injury of unspecified body region, sequela; Y92.129 Unspecified place in nursing home as the place of occurrence of the external cause; Z79.899 Other long term (current) drug therapy; Z88.8 Allergy status to other drugs, medicaments and biological substances; Z88.5 Allergy status to narcotic agent; Z87.891 Personal history of nicotine dependence; Z86.718 Personal history of other venous thrombosis and embolism
CPT/HCPCS: 36415; 36430; 73706; 80048; 80053; 82728; 83540; 83550; 85014; 85018; 85025; 85027; 85610; 85730; 86850; 86900; 86901; 86923; 93005; 93010; 96374; 96375; 99285-25; A9270; A9270-GY; J1644; J2270; J2405; J2916; J7030; J7500; P9016; Q9967; U0002

== ENCOUNTER → 2020-07-05 | Outpatient (CLI) | payer MEDICARE, OTHER ==
[~2020-07-05] MED LIST changes: +Flexeril5 MG PO; +HYDROCODONE-AC1 EAC8 PO; +Milk Of Ma400 MG/5 M PO; +OXYCONTIN10 MG PO; -TOPI100; +TOPI50 PO; -TRAZ150T57 PO
[2020-07-05 13:01] LABS: Hematocrit 18.3 % (37.0-53.0); Mean Corpuscular HGB 27.2 pg (26.0-34.0); Mean Corpuscular HGB Conc 30.6 g/dL (31.5-36.5); Mean Corpuscular Volume 89 fL (80-100); Mean Platelet Volume 11.1 fL (9.1-12.4); Platelet Count 210 K/mm3 (150-400); RDW Coefficient Variation 15.4 % (11.7-14.2); RDW Standard Deviation 49.2 fL (35.1-46.3); Red Blood Cell Count 2.06 M/mm3 (4.30-5.90); White Blood Cell Count 5.83 K/mm3 (4.00-11.30)
[2020-07-05 13:07] LABS: Hemoglobin 5.6 g/dL (13.5-17.5)
[2020-07-05 13:18] LABS: International Normalized Ratio 0.96; Prothrombin Time Results 10.3 Sec (9.7-11.5)
[2020-07-05 14:29] LABS: Anion Gap 8 mmol/L (6-16); Blood Urea Nitrogen 16 mg/dL (8-24); Bun/Creatinine Ratio 20.9 (12.0-20.0); CO2, Blood 26 mmol/L (21-32); Calcium, Blood 8.8 mg/dL (8.5-10.1); Chloride, Blood 102 mmol/L (98-108); Creatinine, Blood 0.77 mg/dL (0.60-1.20); Glomerular Filtration Rate >60 (60-); Glucose, Blood 110 mg/dL (70-99); Potassium, Blood 3.4 mmol/L (3.5-5.5); Sodium, Blood 136 mmol/L (136-145)
== END | disposition home or self-care (01) ==
LOC: EDSTATUS 11:29 → LAB UVN 11:57
PROVIDERS: Family Medicine
DX: D68.9 Coagulation defect, unspecified (principal); I69.351 Hemiplegia and hemiparesis following cerebral infarction affecting right dominant side; Z86.718 Personal history of other venous thrombosis and embolism
CPT/HCPCS: 80048; 85027; 85610

== ENCOUNTER → 2020-11-18 | Outpatient (CLI) | payer MEDICARE, OTHER ==
[~2020-11-18] MED LIST changes: +ACET325 PO; +ATORVASTATIN CA40 MG PO; +COLACE100 MG PO; +CYCLOBENZAPRINE5 MG PO; +DOC250 PO; +DULOXETINE HCL40 M1 PO; +Flexeril5 MG PO; +GABA300 PO; +HYDROCODONE-AC1 EAC8 PO; +Levaquin750 MG PO; +METO25ER PO; +Milk Of Ma400 MG/5 M PO; +OXYCONTIN10 MG PO; +PANT20 PO; +SENN187 PO; +TAMSULOSIN HCL0.4 M1 PO; +TOPI50 PO; +TUMS500 MG PO; +WARF6 PO; +ZYRTEC10 M2 PO
[2020-11-18 06:20] LABS: BASOPHILS ABSOLUTE AUTO 0.02 K/mm3 (0.00-0.23); BASOPHILS PERCENT AUTO 0 % (0-2); EOSINOPHILS ABSOLUTE AUTO 0.01 K/mm3 (0.00-0.68); EOSINOPHILS PERCENT AUTO 0 % (0-6); Hematocrit 45.1 % (37.0-53.0); IMMATURE GRAN ABSOLUTE AUTO 0.01 K/mm3 (0.00-0.10); IMMATURE GRAN PERCENT AUTO 0 % (0-1); LYMPHOCYTES ABSOLUTE AUTO 1.32 K/mm3 (0.84-5.20); LYMPHOCYTES PERCENT AUTO 21 % (21-46); MONOCYTES ABSOLUTE AUTO 0.61 K/mm3 (0.16-1.47); MONOCYTES PERCENT AUTO 10 % (4-13); Mean Corpuscular HGB 26.2 pg (26.0-34.0); Mean Corpuscular Volume 85 fL (80-100); Mean Platelet Volume 10.3 fL (9.1-12.4); NEUTROPHILS ABSOLUTE AUTO 4.36 K/mm3 (1.96-9.15); NEUTROPHILS PERCENT AUTO 69 % (41-73); Platelet Count 131 K/mm3 (150-400); RDW Coefficient Variation 16.2 % (11.7-14.2); RDW Standard Deviation 50.2 fL (35.1-46.3); Red Blood Cell Count 5.34 M/mm3 (4.30-5.90); White Blood Cell Count 6.33 K/mm3 (4.00-11.30)
[2020-11-18 06:37] LABS: Anion Gap 6 mmol/L (6-16); Blood Urea Nitrogen 13 mg/dL (8-24); Bun/Creatinine Ratio 18.8 (12.0-20.0); CO2, Blood 22 mmol/L (21-32); Calcium, Blood 8.9 mg/dL (8.5-10.1); Chloride, Blood 113 mmol/L (98-108); Creatinine, Blood 0.69 mg/dL (0.60-1.20); Glomerular Filtration Rate >60 (60-); Glucose, Blood 94 mg/dL (70-99); Sodium, Blood 141 mmol/L (136-145)
== END | disposition home or self-care (01) ==
LOC: LAB UVN 06:12 → EDSTATUS 13:42
PROVIDERS: Family Medicine
DX: D68.9 Coagulation defect, unspecified (principal)
CPT/HCPCS: 80048; 85025

== ENCOUNTER → 2020-12-18 | Outpatient (CLI) | payer MEDICARE, OTHER ==
[2020-12-18 06:54] LABS: BASOPHILS ABSOLUTE AUTO 0.02 K/mm3 (0.00-0.23); BASOPHILS PERCENT AUTO 0 % (0-2); EOSINOPHILS PERCENT AUTO 0 % (0-6); Hematocrit 45.8 % (37.0-53.0); Hemoglobin 14.5 g/dL (13.5-17.5); IMMATURE GRAN ABSOLUTE AUTO 0.02 K/mm3 (0.00-0.10); IMMATURE GRAN PERCENT AUTO 0 % (0-1); LYMPHOCYTES ABSOLUTE AUTO 1.66 K/mm3 (0.84-5.20); LYMPHOCYTES PERCENT AUTO 16 % (21-46); MONOCYTES ABSOLUTE AUTO 1.04 K/mm3 (0.16-1.47); MONOCYTES PERCENT AUTO 10 % (4-13); Mean Corpuscular HGB 27.1 pg (26.0-34.0); Mean Corpuscular HGB Conc 31.7 g/dL (31.5-36.5); Mean Corpuscular Volume 86 fL (80-100); NEUTROPHILS ABSOLUTE AUTO 7.82 K/mm3 (1.96-9.15); NEUTROPHILS PERCENT AUTO 74 % (41-73); Platelet Count 137 K/mm3 (150-400); Red Blood Cell Count 5.35 M/mm3 (4.30-5.90); White Blood Cell Count 10.56 K/mm3 (4.00-11.30)
== END | disposition home or self-care (01) ==
LOC: LAB UVN 06:45 → EDSTATUS 10:55
PROVIDERS: Family Medicine
DX: D64.9 Anemia, unspecified (principal)
CPT/HCPCS: 85025

== ENCOUNTER 2020-12-30 04:22 | Emergency (ER) | payer MEDICARE, OTHER ==
[~2020-12-30] VITALS: Ht 182.9 cm; Wt 77.1 kg
[~2020-12-30 04:22] MED LIST changes: -CYCLOBENZAPRINE5 MG PO; -DOC250 PO; -Levaquin750 MG PO; -PANT20 PO; -SENN187 PO; -TUMS500 MG PO; -WARF6 PO
[2020-12-30 05:58] LABS: Hematocrit 39.8 % (37.0-53.0); Hemoglobin 12.6 g/dL (13.5-17.5); Mean Corpuscular HGB 27.2 pg (26.0-34.0); Mean Corpuscular HGB Conc 31.7 g/dL (31.5-36.5); Mean Corpuscular Volume 86 fL (80-100); Mean Platelet Volume 9.8 fL (9.1-12.4); Platelet Count 148 K/mm3 (150-400); RDW Coefficient Variation 17.1 % (11.7-14.2); RDW Standard Deviation 53.4 fL (35.1-46.3); Red Blood Cell Count 4.63 M/mm3 (4.30-5.90); White Blood Cell Count 5.95 K/mm3 (4.00-11.30)
[2020-12-30 06:17] LABS: BAND PERCENT MAN 20 % (0-8); BASOPHILS PERCENT MAN 0 % (0-2); EOSINOPHILS PERCENT MAN 0 % (0-6); LYMPHOCYTES ABSOLUTE MAN 0.11 K/mm3 (0.84-5.20); LYMPHOCYTES PERCENT MAN 2 % (21-46); MONOCYTES ABSOLUTE MAN 0.11 K/mm3 (0.16-1.47); MONOCYTES PERCENT MAN 2 % (4-13); NEUTROPHILS ABSOLUTE MAN 5.71 K/mm3 (1.96-9.15); SEG NEUTROPHILS PERCENT MAN 76 % (41-73); TOTAL CELLS COUNTED 100
[2020-12-30 06:20] LABS: Alanine Aminotransfer (ALT/SGP 14 U/L (12-78); Albumin, Blood 3.4 g/dL (3.4-5.0); Albumin/Globulin Ratio 1.2 (0.8-1.8); Alk Phos 61 U/L (50-136); Anion Gap 9 mmol/L (6-16); Aspartate Aminotrans (AST/SGOT 7 U/L (12-37); Bilirubin, Total 0.5 mg/dL (0.1-1.0); Blood Urea Nitrogen 18 mg/dL (8-24); Bun/Creatinine Ratio 16.4 (12.0-20.0); CO2, Blood 21 mmol/L (21-32); Chloride, Blood 111 mmol/L (98-108); Globulin, Blood 2.8 g/dL (2.2-4.0); Glomerular Filtration Rate >60 (60-); Glucose, Blood 94 mg/dL (70-99); Magnesium, Blood 1.6 mg/dL (1.6-2.4); Potassium, Blood 3.6 mmol/L (3.5-5.5); Sodium, Blood 141 mmol/L (136-145); Total Protein, Blood 6.2 g/dL (6.4-8.2); Troponin I <0.015 ng/mL (0.000-0.040)
[2020-12-30 11:06] LABS: Influenza A, PCR NEGATIVE (NEGATIVE); Influenza B, PCR NEGATIVE (NEGATIVE); Resp Syncytial Virus, PCR NEGATIVE (NEGATIVE); SARS-Cov-2 (COVID-19) PCR, MMC NEGATIVE (NEGATIVE)
[2020-12-30 11:19] LABS: Source, Urine Clean Catch
[2020-12-30 11:26] LABS: Appearance, Urine Hazy (Clear); Bilirubin, Urine Neg (Neg); Blood, Urine 4+ (Neg); Color, Urine Yellow (P-Yellow); Glucose Qualitative, Urine Neg (Neg); Ketones, Urine 2+ (Neg); Leukocyte Esterase, Urine 3+ (Neg); Nitrite, Urine Pos (Neg); Protein, Urine 2+ (Neg); Urobilinogen, Urine NORM (Normal)
[2020-12-30 11:55] LABS: White Blood Cells, Urine TNTC /hpf (0-5)
[2020-12-30 11:56] LABS: Bacteria Many /hpf; Squamous Epithelial Cells Rare /hpf (Few)
[2020-12-30 14:10] LABS: Calcium, Ionized (POC) 1.25 mmol/L (1.10-1.46); Chloride (POC) 106 mmol/L (98-108); Creatinine (POC) 1.5 mg/dL (0.8-1.3); Glucose (ISTAT POC) 127 mg/dL (70-99); Hemoglobin (POC) 14.3 g/dL (13.5-17.5); Potassium (POC) 4.2 mmol/L (3.5-5.5); Sodium (POC) 139 mmol/L (135-148); Total CO2 (POC) 18 mmol/L (21-32)
[2020-12-30] MEDS ORDERED: CYCLOBENZAPRINE5 MG PO (14:27)
== END 2020-12-30 14:45 | disposition short-term general hospital (02) ==
LOC: ER 04:22
PROVIDERS: Emergency Medicine
DX: N13.6 Pyonephrosis (principal); J98.01 Acute bronchospasm; Z88.6 Allergy status to analgesic agent; Z79.899 Other long term (current) drug therapy; Z20.822 Contact with and (suspected) exposure to COVID-19
CPT/HCPCS: 0241U; 36415; 51702; 51798; 70491; 71045; 74177; 80047; 80053; 81001; 83605; 83690; 83735; 84484; 85014; 85025; 86850; 86900; 86901; 87040; 87077; 87086; 87186; 93005; 93010; 94640; 96361-59; 96365-59; 96375-59; 99285-25; A9270; C9113; J0696; J1170; J2405; J2930; J3010; J7030; J7120; Q9967

== ENCOUNTER 2021-02-03 01:38 | Emergency (ER) | payer MEDICARE, OTHER ==
[~2021-02-03] VITALS: Ht 180.3 cm; Wt 72.6 kg
[~2021-02-03 01:38] MED LIST changes: +CYCLOBENZAPRINE5 MG PO
[2021-02-03] MEDS ORDERED: PANT20 PO (03:15)
[2021-02-03] MEDS ORDERED: SENN187 PO (03:15)
[2021-02-03] MEDS ORDERED: ZYRTEC10 M2 PO (03:16)
[2021-02-03 04:09] LABS: BASOPHILS ABSOLUTE AUTO 0.01 K/mm3 (0.00-0.23); BASOPHILS PERCENT AUTO 0 % (0-2); EOSINOPHILS PERCENT AUTO 0 % (0-6); Hematocrit 36.9 % (37.0-53.0); Hemoglobin 11.5 g/dL (13.5-17.5); IMMATURE GRAN ABSOLUTE AUTO 0.01 K/mm3 (0.00-0.10); IMMATURE GRAN PERCENT AUTO 0 % (0-1); LYMPHOCYTES ABSOLUTE AUTO 1.29 K/mm3 (0.84-5.20); LYMPHOCYTES PERCENT AUTO 23 % (21-46); MONOCYTES ABSOLUTE AUTO 0.53 K/mm3 (0.16-1.47); MONOCYTES PERCENT AUTO 10 % (4-13); Mean Corpuscular HGB 27.1 pg (26.0-34.0); Mean Corpuscular HGB Conc 31.2 g/dL (31.5-36.5); Mean Corpuscular Volume 87 fL (80-100); Mean Platelet Volume 10.2 fL (9.1-12.4); NEUTROPHILS ABSOLUTE AUTO 3.72 K/mm3 (1.96-9.15); NEUTROPHILS PERCENT AUTO 67 % (41-73); Platelet Count 138 K/mm3 (150-400); RDW Coefficient Variation 16.1 % (11.7-14.2); RDW Standard Deviation 51.9 fL (35.1-46.3); Red Blood Cell Count 4.24 M/mm3 (4.30-5.90); White Blood Cell Count 5.56 K/mm3 (4.00-11.30)
[2021-02-03 04:27] LABS: Alanine Aminotransfer (ALT/SGP 16 U/L (12-78); Albumin, Blood 3.5 g/dL (3.4-5.0); Albumin/Globulin Ratio 1.1 (0.8-1.8); Alk Phos 59 U/L (50-136); Anion Gap 6 mmol/L (6-16); Aspartate Aminotrans (AST/SGOT 13 U/L (12-37); Bilirubin, Total 0.3 mg/dL (0.1-1.0); Blood Urea Nitrogen 11 mg/dL (8-24); CO2, Blood 24 mmol/L (21-32); Calcium, Blood 8.7 mg/dL (8.5-10.1); Chloride, Blood 112 mmol/L (98-108); Creatinine, Blood 0.79 mg/dL (0.60-1.20); Globulin, Blood 3.3 g/dL (2.2-4.0); Glomerular Filtration Rate >60 (60-); Glucose, Blood 94 mg/dL (70-99); Sodium, Blood 142 mmol/L (136-145); Total Protein, Blood 6.8 g/dL (6.4-8.2)
[2021-02-03 05:00] LABS: Source, Urine Clean Catch
[2021-02-03 05:03] LABS: Appearance, Urine Cloudy (Clear); Bilirubin, Urine Neg (Neg); Blood, Urine 5+ (Neg); Color, Urine Amber (P-Yellow); Glucose Qualitative, Urine Neg (Neg); Ketones, Urine Neg (Neg); Leukocyte Esterase, Urine 3+ (Neg); Nitrite, Urine Neg (Neg); Protein, Urine 3+ (Neg); Urobilinogen, Urine NORM (Normal)
[2021-02-03 05:13] LABS: White Blood Cells, Urine TNTC /hpf (0-5)
[2021-02-03 05:14] LABS: Bacteria Many /hpf; Squamous Epithelial Cells Few /hpf (Few)
[2021-02-03] MEDS ORDERED: Levaquin750 MG PO (05:45)
== END 2021-02-03 09:01 | disposition home or self-care (01) ==
LOC: ER 01:38
PROVIDERS: Emergency Medicine
DX: N39.0 Urinary tract infection, site not specified (principal); Z88.6 Allergy status to analgesic agent; Z79.899 Other long term (current) drug therapy; Z86.73 Personal history of transient ischemic attack (TIA), and cerebral infarction without residual deficits
CPT/HCPCS: 36415; 80053; 81001; 85025; 87077; 87086; 87186; 99283; A9270

== ENCOUNTER → 2021-02-05 | Outpatient (CLI) | payer MEDICARE, OTHER ==
[~2021-02-05] MED LIST changes: +DOC250 PO; +Levaquin750 MG PO; +PANT20 PO; +SENN187 PO; +TUMS500 MG PO; +WARF6 PO
[2021-02-05 05:59] LABS: International Normalized Ratio 1.06; Prothrombin Time Results 11.4 Sec (9.7-11.5)
== END ==
LOC: LAB UVN 05:39 → EDSTATUS 09:10
PROVIDERS: Internal Medicine
DX: D68.9 Coagulation defect, unspecified (principal)
CPT/HCPCS: 85610

== ENCOUNTER → 2021-02-07 | Outpatient (CLI) | payer MEDICARE, OTHER ==
[2021-02-07 07:31] LABS: International Normalized Ratio 1.02
== END | disposition home or self-care (01) ==
LOC: LAB UVN 07:00 → EDSTATUS 09:11
PROVIDERS: Family Medicine
DX: D68.9 Coagulation defect, unspecified (principal)
CPT/HCPCS: 85610

== ENCOUNTER → 2021-02-14 | Outpatient (CLI) | payer MEDICARE, OTHER ==
[2021-02-14 06:50] LABS: International Normalized Ratio 1.44; Prothrombin Time Results 15.2 Sec (9.7-11.5)
== END | disposition home or self-care (01) ==
LOC: LAB UVN 04:45 → EDSTATUS 09:12
PROVIDERS: Family Medicine
DX: D68.9 Coagulation defect, unspecified (principal)
CPT/HCPCS: 85610

== ENCOUNTER → 2021-02-18 | Outpatient (CLI) | payer MEDICARE, OTHER ==
[2021-02-18 06:05] LABS: International Normalized Ratio 2.17; Prothrombin Time Results 22.4 Sec (9.7-11.5)
== END | disposition home or self-care (01) ==
LOC: LAB UVN 05:33 → EDSTATUS 14:29
PROVIDERS: Family Medicine
DX: D68.9 Coagulation defect, unspecified (principal); Z86.718 Personal history of other venous thrombosis and embolism
CPT/HCPCS: 85610

== ENCOUNTER → 2021-02-21 | Outpatient (CLI) | payer MEDICARE, OTHER ==
[2021-02-21 06:34] LABS: International Normalized Ratio 1.23; Prothrombin Time Results 13.1 Sec (9.7-11.5)
== END | disposition home or self-care (01) ==
LOC: LAB UVN 05:00 → EDSTATUS 14:31
PROVIDERS: Family Medicine
DX: N10 Acute pyelonephritis (principal); N13.2 Hydronephrosis with renal and ureteral calculous obstruction
CPT/HCPCS: 85610

== ENCOUNTER → 2021-02-25 | Outpatient (CLI) | payer MEDICARE, OTHER ==
[2021-02-25 06:02] LABS: International Normalized Ratio 1.45; Prothrombin Time Results 15.3 Sec (9.7-11.5)
== END | disposition home or self-care (01) ==
LOC: LAB UVN 05:41 → EDSTATUS 14:32
PROVIDERS: Family Medicine
DX: D68.9 Coagulation defect, unspecified (principal)
CPT/HCPCS: 85610

== ENCOUNTER → 2021-02-26 | Outpatient (CLI) | payer MEDICARE, OTHER ==
[2021-02-27 07:03] LABS: Hematocrit 35.1 % (37.0-53.0); Hemoglobin 10.7 g/dL (13.5-17.5); Mean Corpuscular HGB 25.5 pg (26.0-34.0); Mean Corpuscular HGB Conc 30.5 g/dL (31.5-36.5); Mean Corpuscular Volume 84 fL (80-100); Mean Platelet Volume 10.5 fL (9.1-12.4); Platelet Count 227 K/mm3 (150-400); RDW Coefficient Variation 15.6 % (11.7-14.2); RDW Standard Deviation 47.3 fL (35.1-46.3); Red Blood Cell Count 4.19 M/mm3 (4.30-5.90); White Blood Cell Count 6.01 K/mm3 (4.00-11.30)
[2021-02-27 07:14] LABS: Anion Gap 6 mmol/L (6-16); Blood Urea Nitrogen 18 mg/dL (8-24); Bun/Creatinine Ratio 24.5 (12.0-20.0); CO2, Blood 24 mmol/L (21-32); Calcium, Blood 8.5 mg/dL (8.5-10.1); Chloride, Blood 108 mmol/L (98-108); Creatinine, Blood 0.73 mg/dL (0.60-1.20); Glomerular Filtration Rate >60 (60-); Glucose, Blood 107 mg/dL (70-99); Potassium, Blood 3.9 mmol/L (3.5-5.5); Sodium, Blood 138 mmol/L (136-145)
== END | disposition home or self-care (01) ==
LOC: EDSTATUS 14:33 → LAB UVN 23:15
PROVIDERS: Internal Medicine
DX: G40.89 Other seizures (principal); D64.9 Anemia, unspecified; D68.9 Coagulation defect, unspecified
CPT/HCPCS: 80048; 85027

== ENCOUNTER → 2021-02-28 | Outpatient (CLI) | payer MEDICARE, OTHER ==
[2021-02-28 06:28] LABS: International Normalized Ratio 1.95; Prothrombin Time Results 20.3 Sec (9.7-11.5)
== END | disposition home or self-care (01) ==
LOC: LAB UVN 06:11 → LAB 06:11 → EDSTATUS 14:34
PROVIDERS: Family Medicine
DX: I69.251 Hemiplegia and hemiparesis following other nontraumatic intracranial hemorrhage affecting right dominant side (principal)
CPT/HCPCS: 85610

== ENCOUNTER → 2021-03-07 | Outpatient (CLI) | payer MEDICARE, OTHER ==
[2021-03-07 06:04] LABS: International Normalized Ratio 2.62; Prothrombin Time Results 26.8 Sec (9.7-11.5)
== END | disposition home or self-care (01) ==
LOC: LAB UVN 05:28 → EDSTATUS 14:35
PROVIDERS: Family Medicine
DX: D68.9 Coagulation defect, unspecified (principal); Z86.718 Personal history of other venous thrombosis and embolism
CPT/HCPCS: 85610

== ENCOUNTER → 2021-03-13 | Outpatient (CLI) | payer MEDICARE, OTHER ==
[2021-03-14 00:30] LABS: International Normalized Ratio 2.17; Prothrombin Time Results 22.4 Sec (9.7-11.5)
== END | disposition home or self-care (01) ==
LOC: EDSTATUS 12:30 → LAB UVN 23:56
PROVIDERS: Family Medicine
DX: I69.351 Hemiplegia and hemiparesis following cerebral infarction affecting right dominant side (principal); Z86.718 Personal history of other venous thrombosis and embolism
CPT/HCPCS: 85610

== ENCOUNTER → 2021-03-21 | Outpatient (CLI) | payer MEDICARE, OTHER ==
[2021-03-21 13:49] LABS: International Normalized Ratio 2.41; Prothrombin Time Results 24.8 Sec (9.7-11.5)
== END ==
LOC: EDSTATUS 10:38 → LAB UVN 12:40
PROVIDERS: Family Medicine
DX: M35.2 Behcet's disease (principal); I69.351 Hemiplegia and hemiparesis following cerebral infarction affecting right dominant side; D68.9 Coagulation defect, unspecified
CPT/HCPCS: 85610

== ENCOUNTER → 2021-04-04 | Outpatient (CLI) | payer MEDICARE, OTHER ==
[2021-04-04 20:55] LABS: International Normalized Ratio 3.54; Prothrombin Time Results 35.6 Sec (9.7-11.5)
== END ==
LOC: EDSTATUS 10:40 → LAB UVN 19:41
PROVIDERS: Family Medicine
DX: M35.2 Behcet's disease (principal); D68.9 Coagulation defect, unspecified
CPT/HCPCS: 85610

== ENCOUNTER → 2021-04-06 | Outpatient (CLI) | payer MEDICARE, OTHER ==
[2021-04-06 09:12] LABS: International Normalized Ratio 1.48; Prothrombin Time Results 15.6 Sec (9.7-11.5)
== END ==
LOC: LAB UVN 08:36 → EDSTATUS 10:41
PROVIDERS: Internal Medicine
DX: D68.9 Coagulation defect, unspecified (principal)
CPT/HCPCS: 85610

== ENCOUNTER 2021-04-16 06:45 | Emergency (ER) | payer MEDICARE, OTHER ==
[~2021-04-16] VITALS: Ht 177.8 cm; Wt 72.6 kg
[~2021-04-16 06:45] MED LIST changes: -DOC250 PO; -TUMS500 MG PO; -WARF6 PO
[2021-04-16 07:24] LABS: Source, Urine Catheter
[2021-04-16 07:51] LABS: Appearance, Urine Clear (Clear); Bilirubin, Urine Neg (Neg); Blood, Urine 3+ (Neg); Color, Urine Yellow (P-Yellow); Glucose Qualitative, Urine Neg (Neg); Ketones, Urine Neg (Neg); Leukocyte Esterase, Urine Neg (Neg); Nitrite, Urine Neg (Neg); Protein, Urine Neg (Neg); Specific Gravity, Urine 1.015 (1.003-1.022); Urobilinogen, Urine NORM (Normal)
[2021-04-16 07:59] LABS: White Blood Cells, Urine 0-2 /hpf (0-5)
[2021-04-16 08:01] LABS: Squamous Epithelial Cells Rare /hpf (Few)
[2021-04-16 08:02] LABS: Bacteria Rare /hpf
[2021-04-16 09:27] LABS: BASOPHILS ABSOLUTE AUTO 0.02 K/mm3 (0.00-0.23); BASOPHILS PERCENT AUTO 0 % (0-2); EOSINOPHILS PERCENT AUTO 0 % (0-6); Hemoglobin 13.8 g/dL (13.5-17.5); IMMATURE GRAN ABSOLUTE AUTO 0.03 K/mm3 (0.00-0.10); IMMATURE GRAN PERCENT AUTO 0 % (0-1); LYMPHOCYTES ABSOLUTE AUTO 1.54 K/mm3 (0.84-5.20); LYMPHOCYTES PERCENT AUTO 18 % (21-46); MONOCYTES ABSOLUTE AUTO 0.74 K/mm3 (0.16-1.47); MONOCYTES PERCENT AUTO 8 % (4-13); Mean Corpuscular HGB 25.1 pg (26.0-34.0); Mean Corpuscular HGB Conc 32.1 g/dL (31.5-36.5); Mean Corpuscular Volume 78 fL (80-100); Mean Platelet Volume 9.7 fL (9.1-12.4); NEUTROPHILS ABSOLUTE AUTO 6.46 K/mm3 (1.96-9.15); NEUTROPHILS PERCENT AUTO 74 % (41-73); Platelet Count 148 K/mm3 (150-400); RDW Coefficient Variation 18.4 % (11.7-14.2); RDW Standard Deviation 50.6 fL (35.1-46.3); Red Blood Cell Count 5.49 M/mm3 (4.30-5.90); White Blood Cell Count 8.79 K/mm3 (4.00-11.30)
[2021-04-16] MEDS ORDERED: WARF6 PO (09:40)
[2021-04-16] MEDS ORDERED: TUMS500 MG PO (09:44)
[2021-04-16 09:52] LABS: Alanine Aminotransfer (ALT/SGP 21 U/L (12-78); Albumin, Blood 3.9 g/dL (3.4-5.0); Albumin/Globulin Ratio 1.3 (0.8-1.8); Alk Phos 70 U/L (50-136); Anion Gap 4 mmol/L (6-16); Aspartate Aminotrans (AST/SGOT 16 U/L (12-37); Bilirubin, Total 0.7 mg/dL (0.1-1.0); Blood Urea Nitrogen 13 mg/dL (8-24); Bun/Creatinine Ratio 16.7 (12.0-20.0); CO2, Blood 23 mmol/L (21-32); Calcium, Blood 8.7 mg/dL (8.5-10.1); Chloride, Blood 111 mmol/L (98-108); Creatinine, Blood 0.78 mg/dL (0.60-1.20); Globulin, Blood 3.1 g/dL (2.2-4.0); Glomerular Filtration Rate >60 (60-); Glucose, Blood 104 mg/dL (70-99); Sodium, Blood 138 mmol/L (136-145)
[2021-04-16] MEDS ORDERED: DOC250 PO (10:06)
[2021-04-16] MEDS ORDERED: BISA10S PR (10:06)
== END 2021-04-16 12:37 | disposition home or self-care (01) ==
LOC: ER 06:45
PROVIDERS: Emergency Medicine
DX: K59.00 Constipation, unspecified (principal); R33.9 Retention of urine, unspecified; Z79.01 Long term (current) use of anticoagulants; Z79.899 Other long term (current) drug therapy; Z88.6 Allergy status to analgesic agent; Z87.891 Personal history of nicotine dependence
CPT/HCPCS: 36415; 51702; 74176; 80053; 81001; 85025; 99284-25; A9270

== ENCOUNTER → 2021-04-18 | Outpatient (CLI) | payer MEDICARE, OTHER ==
[~2021-04-18] MED LIST changes: +DOC250 PO; +TUMS500 MG PO; +WARF6 PO
[2021-04-18 12:50] LABS: International Normalized Ratio 3.48
== END ==
LOC: LAB UVN 10:47 → EDSTATUS 13:43
PROVIDERS: Family Medicine
DX: D68.9 Coagulation defect, unspecified (principal); Z86.718 Personal history of other venous thrombosis and embolism; Z88.6 Allergy status to analgesic agent
CPT/HCPCS: 85610

== ENCOUNTER → 2021-05-03 | Outpatient (CLI) | payer MEDICARE, OTHER ==
[2021-05-03 10:08] LABS: International Normalized Ratio 2.01; Prothrombin Time Results 20.9 Sec (9.7-11.5)
== END ==
LOC: LAB UVN 07:30 → EDSTATUS 13:45
PROVIDERS: Family Medicine
DX: D68.9 Coagulation defect, unspecified (principal); M35.2 Behcet's disease; D64.9 Anemia, unspecified; Z88.8 Allergy status to other drugs, medicaments and biological substances; Z88.6 Allergy status to analgesic agent
CPT/HCPCS: 85610

== ENCOUNTER → 2021-05-16 | Outpatient (CLI) | payer MEDICARE, OTHER ==
[2021-05-16 15:53] LABS: International Normalized Ratio 2.72; Prothrombin Time Results 27.8 Sec (9.7-11.5)
== END ==
LOC: LAB UVN 11:30 → EDSTATUS 13:47
PROVIDERS: Family Medicine
DX: M35.2 Behcet's disease (principal); I69.351 Hemiplegia and hemiparesis following cerebral infarction affecting right dominant side; Z88.8 Allergy status to other drugs, medicaments and biological substances; Z88.6 Allergy status to analgesic agent
CPT/HCPCS: 85610

== ENCOUNTER → 2021-05-31 | Outpatient (CLI) | payer MEDICARE, OTHER ==
[2021-05-31 21:20] LABS: International Normalized Ratio 1.65; Prothrombin Time Results 17.3 Sec (9.7-11.5)
== END | disposition home or self-care (01) ==
LOC: EDSTATUS 11:31 → LAB UVN 21:00
PROVIDERS: Internal Medicine
DX: Z09 Encounter for follow-up examination after completed treatment for conditions other than malignant neoplasm (principal); Z86.718 Personal history of other venous thrombosis and embolism
CPT/HCPCS: 85610

== ENCOUNTER → 2021-06-13 | Outpatient (CLI) | payer MEDICARE, OTHER ==
[2021-06-13 11:21] LABS: International Normalized Ratio 1.88; Prothrombin Time Results 19.6 Sec (9.7-11.5)
== END | disposition home or self-care (01) ==
LOC: LAB RH 10:00 → LAB UVN 10:00 → EDSTATUS 11:32
PROVIDERS: Internal Medicine
DX: M35.2 Behcet's disease (principal); D68.9 Coagulation defect, unspecified
CPT/HCPCS: 85610

== ENCOUNTER → 2021-06-27 | Outpatient (CLI) | payer MEDICARE, OTHER ==
[2021-06-27 13:22] LABS: International Normalized Ratio 1.63; Prothrombin Time Results 17.1 Sec (9.7-11.5)
== END | disposition home or self-care (01) ==
LOC: EDSTATUS 11:39 → LAB UVN 11:50
PROVIDERS: Internal Medicine
DX: M35.2 Behcet's disease (principal); D68.9 Coagulation defect, unspecified
CPT/HCPCS: 85610

== ENCOUNTER → 2021-07-11 | Outpatient (CLI) | payer MEDICARE, OTHER ==
[2021-07-11 18:00] LABS: International Normalized Ratio 2.11; Prothrombin Time Results 21.8 Sec (9.7-11.5)
== END | disposition home or self-care (01) ==
LOC: EDSTATUS 11:40 → LAB UVN 17:17
PROVIDERS: Internal Medicine
DX: D68.9 Coagulation defect, unspecified (principal)
CPT/HCPCS: 85610

== ENCOUNTER → 2021-07-25 | Outpatient (CLI) | payer MEDICARE, OTHER ==
[2021-07-25 12:24] LABS: International Normalized Ratio 3.2; Prothrombin Time Results 31.1 Sec (9.7-11.5)
== END ==
LOC: LAB UVN 10:45 → EDSTATUS 16:00
PROVIDERS: Internal Medicine
DX: M35.2 Behcet's disease (principal); D68.9 Coagulation defect, unspecified; Z88.8 Allergy status to other drugs, medicaments and biological substances; Z88.6 Allergy status to analgesic agent
CPT/HCPCS: 85610

== ENCOUNTER → 2021-08-08 | Outpatient (CLI) | payer MEDICARE, OTHER ==
[2021-08-08 12:56] LABS: International Normalized Ratio 1.42; Prothrombin Time Results 14.6 Sec (9.7-11.5)
== END ==
LOC: LAB UVN 11:10 → EDSTATUS 16:01
PROVIDERS: Internal Medicine
DX: D68.9 Coagulation defect, unspecified (principal); Z88.8 Allergy status to other drugs, medicaments and biological substances; Z88.6 Allergy status to analgesic agent
CPT/HCPCS: 85610

== ENCOUNTER → 2021-09-06 | Outpatient (CLI) | payer MEDICARE, OTHER ==
[2021-09-06 11:07] LABS: International Normalized Ratio 2.54; Prothrombin Time Results 25.1 Sec (9.7-11.5)
== END | disposition home or self-care (01) ==
LOC: LAB UVN 09:58 → EDSTATUS 13:18
PROVIDERS: Internal Medicine
DX: M35.2 Behcet's disease (principal); D68.9 Coagulation defect, unspecified
CPT/HCPCS: 85610

== ENCOUNTER → 2021-10-03 | Outpatient (CLI) | payer MEDICARE, OTHER ==
[~2021-10-03] MED LIST changes: +CYMBALTA30 M2 PO; +GABA100 PO; +XARELTO20 M1 PO
[2021-10-03 17:56] LABS: International Normalized Ratio 1.97; Prothrombin Time Results 19.8 Sec (9.7-11.5)
== END | disposition home or self-care (01) ==
LOC: LAB UVN 15:45
PROVIDERS: Internal Medicine
DX: M35.2 Behcet's disease (principal); D68.9 Coagulation defect, unspecified
CPT/HCPCS: 85610

== ENCOUNTER → 2021-10-17 | Outpatient (CLI) | payer MEDICARE, OTHER ==
[~2021-10-17] MED LIST changes: -CYMBALTA30 M2 PO; -GABA100 PO; -XARELTO20 M1 PO
[2021-10-17 16:29] LABS: International Normalized Ratio 2.6; Prothrombin Time Results 25.6 Sec (9.7-11.5)
== END | disposition home or self-care (01) ==
LOC: EDSTATUS 10:57 → LAB UVN 14:24
PROVIDERS: Internal Medicine
DX: M35.2 Behcet's disease (principal); D68.9 Coagulation defect, unspecified
CPT/HCPCS: 85610

== ENCOUNTER → 2021-11-01 | Outpatient (CLI) | payer MEDICARE, OTHER ==
[~2021-11-01] MED LIST changes: +CYMBALTA30 M2 PO; +GABA100 PO; +XARELTO20 M1 PO
[2021-11-01 06:41] LABS: BASOPHILS ABSOLUTE AUTO 0.01 K/mm3 (0.00-0.23); BASOPHILS PERCENT AUTO 0 % (0-2); EOSINOPHILS ABSOLUTE AUTO 0.02 K/mm3 (0.00-0.68); EOSINOPHILS PERCENT AUTO 0 % (0-6); Hemoglobin 13.7 g/dL (13.5-17.5); IMMATURE GRAN ABSOLUTE AUTO 0.01 K/mm3 (0.00-0.10); IMMATURE GRAN PERCENT AUTO 0 % (0-1); LYMPHOCYTES PERCENT AUTO 33 % (21-46); MONOCYTES ABSOLUTE AUTO 0.52 K/mm3 (0.16-1.47); MONOCYTES PERCENT AUTO 11 % (4-13); Mean Corpuscular HGB 28.8 pg (26.0-34.0); Mean Corpuscular HGB Conc 33.4 g/dL (31.5-36.5); Mean Corpuscular Volume 86 fL (80-100); Mean Platelet Volume 11.4 fL (9.1-12.4); NEUTROPHILS ABSOLUTE AUTO 2.75 K/mm3 (1.96-9.15); NEUTROPHILS PERCENT AUTO 56 % (41-73); RDW Coefficient Variation 17.2 % (11.7-14.2); RDW Standard Deviation 53.9 fL (35.1-46.3); Red Blood Cell Count 4.76 M/mm3 (4.30-5.90); White Blood Cell Count 4.91 K/mm3 (4.00-11.30)
[2021-11-01 06:45] LABS: Platelet Count 95 K/mm3 (150-400)
[2021-11-01 06:52] LABS: Anion Gap 8 mmol/L (6-16); Blood Urea Nitrogen 17 mg/dL (8-24); Bun/Creatinine Ratio 20.3 (12.0-20.0); CO2, Blood 22 mmol/L (21-32); Calcium, Blood 8.3 mg/dL (8.5-10.1); Chloride, Blood 113 mmol/L (98-108); Creatinine, Blood 0.84 mg/dL (0.60-1.20); Glomerular Filtration Rate >60 (60-); Glucose, Blood 130 mg/dL (70-99); Potassium, Blood 3.4 mmol/L (3.5-5.5); Sodium, Blood 143 mmol/L (136-145)
[2021-11-01 06:54] LABS: International Normalized Ratio 3.92; Prothrombin Time Results 37.6 Sec (9.7-11.5)
== END | disposition home or self-care (01) ==
LOC: LAB UVN 04:57 → EDSTATUS 11:54
PROVIDERS: Internal Medicine
DX: G82.52 Quadriplegia, C1-C4 incomplete (principal); G40.89 Other seizures; D64.9 Anemia, unspecified
CPT/HCPCS: 80048; 85025; 85610

== ENCOUNTER → 2021-11-02 | Outpatient (CLI) | payer MEDICARE, OTHER ==
[2021-11-02 19:55] LABS: International Normalized Ratio 3.18
== END | disposition home or self-care (01) ==
LOC: EDSTATUS 11:56 → LAB UVN 16:39
PROVIDERS: Internal Medicine
DX: D68.9 Coagulation defect, unspecified (principal); Z86.718 Personal history of other venous thrombosis and embolism
CPT/HCPCS: 85610

== ENCOUNTER → 2021-11-09 | Outpatient (CLI) | payer MEDICARE, OTHER ==
[2021-11-09 14:47] LABS: BASOPHILS ABSOLUTE AUTO 0.01 K/mm3 (0.00-0.23); BASOPHILS PERCENT AUTO 0 % (0-2); EOSINOPHILS PERCENT AUTO 0 % (0-6); Hematocrit 38.5 % (37.0-53.0); Hemoglobin 12.8 g/dL (13.5-17.5); IMMATURE GRAN ABSOLUTE AUTO 0.02 K/mm3 (0.00-0.10); IMMATURE GRAN PERCENT AUTO 0 % (0-1); LYMPHOCYTES ABSOLUTE AUTO 0.93 K/mm3 (0.84-5.20); LYMPHOCYTES PERCENT AUTO 13 % (21-46); MONOCYTES ABSOLUTE AUTO 0.73 K/mm3 (0.16-1.47); MONOCYTES PERCENT AUTO 10 % (4-13); Mean Corpuscular HGB 29.1 pg (26.0-34.0); Mean Corpuscular HGB Conc 33.2 g/dL (31.5-36.5); Mean Corpuscular Volume 88 fL (80-100); Mean Platelet Volume 10.7 fL (9.1-12.4); NEUTROPHILS ABSOLUTE AUTO 5.63 K/mm3 (1.96-9.15); NEUTROPHILS PERCENT AUTO 77 % (41-73); Platelet Count 91 K/mm3 (150-400); RDW Coefficient Variation 17.3 % (11.7-14.2); RDW Standard Deviation 55.6 fL (35.1-46.3); White Blood Cell Count 7.32 K/mm3 (4.00-11.30)
[2021-11-09 15:00] LABS: Anion Gap 8 mmol/L (6-16); Blood Urea Nitrogen 21 mg/dL (8-24); Bun/Creatinine Ratio 17.5 (12.0-20.0); CO2, Blood 20 mmol/L (21-32); Calcium, Blood 8.5 mg/dL (8.5-10.1); Chloride, Blood 109 mmol/L (98-108); Glomerular Filtration Rate >60 (60-); Glucose, Blood 141 mg/dL (70-99); Potassium, Blood 3.8 mmol/L (3.5-5.5); Sodium, Blood 137 mmol/L (136-145)
[2021-11-09 23:13] LABS: Blood, Urine 5+ (Neg); Glucose Qualitative, Urine Neg (Neg); Ketones, Urine 1+ (Neg); Leukocyte Esterase, Urine 3+ (Neg); Nitrite, Urine Pos (Neg); Protein, Urine 3+ (Neg); Specific Gravity, Urine 1.015 (1.003-1.022); Urobilinogen, Urine 3+ (Normal)
[2021-11-09 23:21] LABS: Appearance, Urine Cloudy (Clear); Bilirubin, Urine 3+ (Neg); Color, Urine Amber (P-Yellow)
[2021-11-09 23:22] LABS: Bacteria Mod /hpf; Red Blood Cells, Urine TNTC /hpf (0-2); Squamous Epithelial Cells Not Seen /hpf (Few); White Blood Cells, Urine 25-50 /hpf (0-5)
== END | disposition home or self-care (01) ==
LOC: EDSTATUS 11:58 → LAB UVN 13:45
PROVIDERS: Internal Medicine
DX: N13.9 Obstructive and reflux uropathy, unspecified (principal); N13.2 Hydronephrosis with renal and ureteral calculous obstruction
CPT/HCPCS: 80048; 81001; 85025; 87086

== ENCOUNTER → 2021-11-30 | Outpatient (CLI) | payer MEDICARE, OTHER ==
[2021-11-30 08:05] LABS: International Normalized Ratio 3.16; Prothrombin Time Results 30.8 Sec (9.7-11.5)
== END | disposition home or self-care (01) ==
LOC: LAB UVN 07:43 → EDSTATUS 10:43
PROVIDERS: Internal Medicine
DX: M35.2 Behcet's disease (principal); D68.9 Coagulation defect, unspecified
CPT/HCPCS: 85610

== ENCOUNTER 2021-12-26 16:04 | Emergency (ER) | payer MEDICARE, OTHER ==
[~2021-12-26] VITALS: Ht 180.3 cm; Wt 72.6 kg
[~2021-12-26 16:04] MED LIST changes: -CYMBALTA30 M2 PO; -GABA100 PO; -XARELTO20 M1 PO
[2021-12-26 16:52] LABS: BASOPHILS ABSOLUTE AUTO 0.01 K/mm3 (0.00-0.23); BASOPHILS PERCENT AUTO 0 % (0-2); EOSINOPHILS ABSOLUTE AUTO 0.01 K/mm3 (0.00-0.68); EOSINOPHILS PERCENT AUTO 0 % (0-6); Hematocrit 44.3 % (37.0-53.0); Hemoglobin 14.2 g/dL (13.5-17.5); IMMATURE GRAN ABSOLUTE AUTO 0.01 K/mm3 (0.00-0.10); IMMATURE GRAN PERCENT AUTO 0 % (0-1); LYMPHOCYTES ABSOLUTE AUTO 1.29 K/mm3 (0.84-5.20); LYMPHOCYTES PERCENT AUTO 23 % (21-46); MONOCYTES ABSOLUTE AUTO 0.64 K/mm3 (0.16-1.47); MONOCYTES PERCENT AUTO 12 % (4-13); Mean Corpuscular HGB 28.8 pg (26.0-34.0); Mean Corpuscular HGB Conc 32.1 g/dL (31.5-36.5); Mean Corpuscular Volume 90 fL (80-100); Mean Platelet Volume 10.8 fL (9.1-12.4); NEUTROPHILS ABSOLUTE AUTO 3.56 K/mm3 (1.96-9.15); NEUTROPHILS PERCENT AUTO 64 % (41-73); Platelet Count 152 K/mm3 (150-400); RDW Coefficient Variation 16.9 % (11.7-14.2); RDW Standard Deviation 55.8 fL (35.1-46.3); Red Blood Cell Count 4.93 M/mm3 (4.30-5.90); White Blood Cell Count 5.52 K/mm3 (4.00-11.30)
[2021-12-26 17:17] LABS: Alanine Aminotransfer (ALT/SGP 17 U/L (12-78); Albumin, Blood 3.9 g/dL (3.4-5.0); Albumin/Globulin Ratio 1.2 (0.8-1.8); Alk Phos 63 U/L (50-136); Anion Gap 6 mmol/L (6-16); Aspartate Aminotrans (AST/SGOT 11 U/L (12-37); Bilirubin, Total 0.5 mg/dL (0.1-1.0); Blood Urea Nitrogen 14 mg/dL (8-24); Bun/Creatinine Ratio 17.8 (12.0-20.0); CO2, Blood 19 mmol/L (21-32); Calcium, Blood 8.9 mg/dL (8.5-10.1); Chloride, Blood 116 mmol/L (98-108); Creatinine, Blood 0.79 mg/dL (0.60-1.20); Globulin, Blood 3.3 g/dL (2.2-4.0); Glomerular Filtration Rate >60 (60-); Glucose, Blood 123 mg/dL (70-99); Potassium, Blood 3.7 mmol/L (3.5-5.5); Sodium, Blood 141 mmol/L (136-145); Total Protein, Blood 7.2 g/dL (6.4-8.2)
[2021-12-26] MEDS ORDERED: XARELTO20 M1 PO (17:22)
[2021-12-26] MEDS ORDERED: CYMBALTA30 M2 PO (17:22)
[2021-12-26] MEDS ORDERED: GABA100 PO (17:22)
== END 2021-12-26 20:21 | disposition home or self-care (01) ==
LOC: ER 16:04
PROVIDERS: Student in an Organized Health Care Education/Training Program
DX: M79.81 Nontraumatic hematoma of soft tissue (principal); R51.9 Headache, unspecified; Z79.899 Other long term (current) drug therapy
CPT/HCPCS: 70450; 80053; 85025; 99284-25

== ENCOUNTER → 2022-02-05 | Outpatient (CLI) | payer MEDICARE, OTHER ==
[~2022-02-05] MED LIST changes: +CYMBALTA30 M2 PO; +GABA100 PO; +XARELTO20 M1 PO
[2022-02-05 14:21] LABS: Source, Urine Clean Catch
[2022-02-05 15:07] LABS: Appearance, Urine Hazy (Clear); Bilirubin, Urine Neg (Neg); Blood, Urine 4+ (Neg); Color, Urine Yellow (P-Yellow); Glucose Qualitative, Urine Neg (Neg); Ketones, Urine Neg (Neg); Leukocyte Esterase, Urine 3+ (Neg); Nitrite, Urine Neg (Neg); Protein, Urine Neg (Neg); Specific Gravity, Urine 1.025 (1.003-1.022); Urobilinogen, Urine NORM (Normal)
[2022-02-05 16:32] LABS: Amorphous Light (0-Heavy); Bacteria Mod /hpf; Hyaline Casts 0-2 /lpf (0-2); Mucus Light (0-Heavy); Red Blood Cells, Urine 50-100 /hpf (0-2); Squamous Epithelial Cells Rare /hpf (Few)
[2022-02-05 16:33] LABS: White Blood Cells, Urine 25-50 /hpf (0-5)
== END | disposition home or self-care (01) ==
LOC: EDSTATUS 11:16 → LAB UVN 14:20
PROVIDERS: Internal Medicine
DX: R39.9 Unspecified symptoms and signs involving the genitourinary system (principal)
CPT/HCPCS: 81001; 87077; 87086; 87186

== ENCOUNTER → 2022-03-11 | Outpatient (CLI) | payer MEDICARE, OTHER ==
[2022-03-11 10:41] LABS: BASOPHILS ABSOLUTE AUTO 0.02 K/mm3 (0.00-0.23); BASOPHILS PERCENT AUTO 0 % (0-2); EOSINOPHILS ABSOLUTE AUTO 0.01 K/mm3 (0.00-0.68); EOSINOPHILS PERCENT AUTO 0 % (0-6); Hematocrit 40.1 % (37.0-53.0); IMMATURE GRAN ABSOLUTE AUTO 0.01 K/mm3 (0.00-0.10); IMMATURE GRAN PERCENT AUTO 0 % (0-1); LYMPHOCYTES ABSOLUTE AUTO 1.58 K/mm3 (0.84-5.20); LYMPHOCYTES PERCENT AUTO 31 % (21-46); MONOCYTES ABSOLUTE AUTO 0.45 K/mm3 (0.16-1.47); MONOCYTES PERCENT AUTO 9 % (4-13); Mean Corpuscular HGB 29.1 pg (26.0-34.0); Mean Corpuscular HGB Conc 32.4 g/dL (31.5-36.5); Mean Corpuscular Volume 90 fL (80-100); NEUTROPHILS ABSOLUTE AUTO 3.09 K/mm3 (1.96-9.15); NEUTROPHILS PERCENT AUTO 60 % (41-73); Platelet Count 101 K/mm3 (150-400); RDW Coefficient Variation 15.2 % (11.7-14.2); Red Blood Cell Count 4.47 M/mm3 (4.30-5.90); White Blood Cell Count 5.16 K/mm3 (4.00-11.30)
[2022-03-11 17:40] LABS: Bun/Creatinine Ratio 18.1 (12.0-20.0); Calcium, Blood 8.7 mg/dL (8.5-10.1); Creatinine, Blood 0.83 mg/dL (0.60-1.20); Potassium, Blood 3.8 mmol/L (3.5-5.5)
== END | disposition home or self-care (01) ==
LOC: LAB UVN 09:17 → EDSTATUS 15:44
PROVIDERS: Internal Medicine
DX: I69.351 Hemiplegia and hemiparesis following cerebral infarction affecting right dominant side (principal); G82.52 Quadriplegia, C1-C4 incomplete; M47.12 Other spondylosis with myelopathy, cervical region; M62.81 Muscle weakness (generalized); N40.1 Benign prostatic hyperplasia with lower urinary tract symptoms; N11.1 Chronic obstructive pyelonephritis; Z74.1 Need for assistance with personal care
CPT/HCPCS: 80048; 85025

== ENCOUNTER 2023-03-14 20:39 | Emergency (ER) | payer MEDICARE, OTHER ==
[~2023-03-14] VITALS: Ht 180.3 cm; Wt 79.4 kg
[2023-03-15 00:15] VITALS: BP 97/68
== END 2023-03-15 00:43 | disposition home or self-care (01) ==
LOC: ER 20:39
DX: M54.2 Cervicalgia (principal); G89.29 Other chronic pain; G40.909 Epilepsy, unspecified, not intractable, without status epilepticus; Z86.73 Personal history of transient ischemic attack (TIA), and cerebral infarction without residual deficits; Z88.6 Allergy status to analgesic agent; Z79.01 Long term (current) use of anticoagulants; Z79.899 Other long term (current) drug therapy
CPT/HCPCS: 72125; A9270

== ENCOUNTER 2023-06-01 13:08 | Emergency (ER) | payer OTHER ==
[~2023-06-01] VITALS: Ht 177.8 cm; Wt 77.1 kg
[2023-06-01 14:50] LABS: Calcium, Ionized (POC) 1.17 mmol/L (1.10-1.46); Chloride (POC) 107 mmol/L (98-108); Creatinine (POC) 1.1 mg/dL (0.8-1.3); Glucose (ISTAT POC) 84 mg/dL (70-99); Hemoglobin (POC) 12.2 g/dL (13.5-17.5); Sodium (POC) 140 mmol/L (135-148); Total CO2 (POC) 21 mmol/L (21-32)
[2023-06-01 15:22] LABS: Source, Urine Straight Cath
[2023-06-01 15:44] LABS: Appearance, Urine Clear (Clear); Bilirubin, Urine Neg (Neg); Blood, Urine Neg (Neg); Color, Urine Yellow (P-Yellow); Glucose Qualitative, Urine Neg (Neg); Ketones, Urine Neg (Neg); Leukocyte Esterase, Urine Neg (Neg); Nitrite, Urine Neg (Neg); Protein, Urine Neg (Neg); Urobilinogen, Urine NORM (Normal)
[2023-06-01 16:00] VITALS: BP 107/70
[2023-06-01] MEDS ORDERED: Kristalose20 GM PO (16:40)
== END 2023-06-01 17:20 | disposition home or self-care (01) ==
LOC: ER 13:08
PROVIDERS: Emergency Medicine
DX: K59.09 Other constipation (principal); Z88.6 Allergy status to analgesic agent; Z88.8 Allergy status to other drugs, medicaments and biological substances; Z79.899 Other long term (current) drug therapy; G40.909 Epilepsy, unspecified, not intractable, without status epilepticus
CPT/HCPCS: 51798; 74018; 80047; 81003; 85014; 99284-25; A9270; J7030

== ENCOUNTER → 2023-06-11 | Outpatient (CLI) | payer OTHER ==
[~2023-06-11] MED LIST changes: +Kristalose20 GM PO
[2023-06-12 22:08] LABS: HBSAG SCREEN Negative (Negative); HCV AB Non Reactive (Non Reactive); HEP B CORE AB, TOT Negative (Negative)
== END | disposition home or self-care (01) ==
LOC: LAB SHORT 12:41 → LAB 12:41
PROVIDERS: Physician Assistant
DX: Z11.59 Encounter for screening for other viral diseases (principal)
CPT/HCPCS: 86704; 86708; 86803; 87340

== ENCOUNTER → 2023-07-17 | Outpatient (CLI) | payer OTHER ==
[2023-07-17 17:25] LABS: Source, Urine Voided
[2023-07-17 18:23] LABS: Appearance, Urine Cloudy (Clear); Bilirubin, Urine Neg (Neg); Blood, Urine 5+ (Neg); Color, Urine Yellow (P-Yellow); Glucose Qualitative, Urine Neg (Neg); Ketones, Urine Neg (Neg); Leukocyte Esterase, Urine Neg (Neg); Nitrite, Urine Neg (Neg); Protein, Urine Neg (Neg); Specific Gravity, Urine 1.015 (1.003-1.022); Urobilinogen, Urine NORM (Normal)
[2023-07-17 19:25] LABS: Amorphous Mod (0-Heavy); Bacteria Many /hpf; Mucus Light (0-Heavy); Red Blood Cells, Urine 50-100 /hpf (0-2); Squamous Epithelial Cells Rare /hpf (Few); White Blood Cells, Urine 0-2 /hpf (0-5)
== END | disposition home or self-care (01) ==
LOC: LAB SHORT 17:23 → LAB 17:23
PROVIDERS: Physician Assistant
DX: N39.0 Urinary tract infection, site not specified (principal)
CPT/HCPCS: 81001; 87086

== ENCOUNTER → 2023-07-28 | Outpatient (CLI) | payer OTHER ==
[2023-07-28 17:37] LABS: Appearance, Urine Cloudy (Clear); Bilirubin, Urine Neg (Neg); Blood, Urine 2+ (Neg); Color, Urine Yellow (P-Yellow); Glucose Qualitative, Urine Neg (Neg); Ketones, Urine Neg (Neg); Leukocyte Esterase, Urine Neg (Neg); Nitrite, Urine Neg (Neg); Protein, Urine Neg (Neg); Specific Gravity, Urine 1.015 (1.003-1.022); Urobilinogen, Urine 1+ (Normal)
[2023-07-28 18:02] LABS: Amorphous Mod (0-Heavy); Bacteria Few /hpf; Squamous Epithelial Cells Rare /hpf (Few); White Blood Cells, Urine 0-2 /hpf (0-5)
== END ==
LOC: LAB SHORT 14:57 → LAB 14:57
PROVIDERS: Physician Assistant
DX: N39.0 Urinary tract infection, site not specified (principal)
CPT/HCPCS: 81001

== ENCOUNTER → 2023-09-03 | Outpatient (CLI) | payer OTHER | LOC: LAB 15:47 → LAB SHORT 15:47 | DX: N39.0 Urinary tract infection, site not specified (principal) | CPT/HCPCS: 87086 ==

== ENCOUNTER 2023-11-10 13:42 | Emergency (ER) | payer OTHER ==
[~2023-11-10] VITALS: Ht 177.8 cm; Wt 54.4 kg
[2023-11-10 15:30] LABS: BASOPHILS ABSOLUTE AUTO 0.01 K/mm3 (0.00-0.23); BASOPHILS PERCENT AUTO 0 % (0-2); EOSINOPHILS ABSOLUTE AUTO 0.01 K/mm3 (0.00-0.68); EOSINOPHILS PERCENT AUTO 0 % (0-6); Hematocrit 36.4 % (37.0-53.0); Hemoglobin 11.7 g/dL (13.5-17.5); IMMATURE GRAN ABSOLUTE AUTO 0.03 K/mm3 (0.00-0.10); IMMATURE GRAN PERCENT AUTO 1 % (0-1); LYMPHOCYTES ABSOLUTE AUTO 0.63 K/mm3 (0.84-5.20); LYMPHOCYTES PERCENT AUTO 10 % (21-46); MONOCYTES ABSOLUTE AUTO 0.29 K/mm3 (0.16-1.47); MONOCYTES PERCENT AUTO 5 % (4-13); Mean Corpuscular HGB 31.2 pg (26.0-34.0); Mean Corpuscular HGB Conc 32.1 g/dL (31.5-36.5); Mean Corpuscular Volume 97 fL (80-100); Mean Platelet Volume 11.4 fL (9.1-12.4); NEUTROPHILS ABSOLUTE AUTO 5.27 K/mm3 (1.96-9.15); NEUTROPHILS PERCENT AUTO 84 % (41-73); Platelet Count 111 K/mm3 (150-400); RDW Coefficient Variation 17.2 % (11.7-14.2); RDW Standard Deviation 61.3 fL (35.1-46.3); Red Blood Cell Count 3.75 M/mm3 (4.30-5.90); White Blood Cell Count 6.24 K/mm3 (4.00-11.30)
[2023-11-10 15:56] LABS: Bun/Creatinine Ratio 15.9 (12.0-20.0); Calcium, Blood 8.6 mg/dL (8.5-10.1); Creatinine, Blood 0.88 mg/dL (0.60-1.20); Potassium, Blood 3.9 mmol/L (3.5-5.5)
[2023-11-10 22:45] VITALS: BP 104/74
== END 2023-11-10 22:55 | disposition short-term general hospital (02) ==
LOC: ER 13:42
PROVIDERS: Student in an Organized Health Care Education/Training Program
DX: S06.6X0A Traumatic subarachnoid hemorrhage without loss of consciousness, initial encounter (principal); S42.031A Displaced fracture of lateral end of right clavicle, initial encounter for closed fracture; S06.5X0A Traumatic subdural hemorrhage without loss of consciousness, initial encounter; R40.2142 Coma scale, eyes open, spontaneous, at arrival to emergency department; R40.2362 Coma scale, best motor response, obeys commands, at arrival to emergency department; R40.2252 Coma scale, best verbal response, oriented, at arrival to emergency department; S01.01XA Laceration without foreign body of scalp, initial encounter; S40.211A Abrasion of right shoulder, initial encounter; Z87.891 Personal history of nicotine dependence; G40.909 Epilepsy, unspecified, not intractable, without status epilepticus; Z86.73 Personal history of transient ischemic attack (TIA), and cerebral infarction without residual deficits; N40.0 Benign prostatic hyperplasia without lower urinary tract symptoms; Z79.01 Long term (current) use of anticoagulants; Z79.899 Other long term (current) drug therapy; Z88.6 Allergy status to analgesic agent; W05.0XXA Fall from non-moving wheelchair, initial encounter; Y92.480 Sidewalk as the place of occurrence of the external cause
CPT/HCPCS: 70450; 72125; 73030; 80048; 85025; 90471; 90714; 96365; 96366; 96375; 96376; 99285-25; J1170; J2405; J3010; J7168

== ENCOUNTER 2024-02-10 09:07 | Emergency (ER) | payer OTHER ==
[~2024-02-10] VITALS: Ht 177.8 cm; Wt 68.0 kg
[~2024-02-10 09:07] MED LIST changes: +ALBU90OI INH; +FEROSUL325 M1 PO; +XARELTO20 MG PO
[2024-02-10] MEDS ORDERED: Amitriptyline H10 MG PO (09:55)
[2024-02-10] MEDS ORDERED: ESCI10 PO (09:55)
[2024-02-10 10:16] LABS: BASOPHILS ABSOLUTE AUTO 0.01 K/mm3 (0.00-0.23); BASOPHILS PERCENT AUTO 0 % (0-2); EOSINOPHILS PERCENT AUTO 0 % (0-6); Hematocrit 38.8 % (37.0-53.0); Hemoglobin 12.5 g/dL (13.5-17.5); IMMATURE GRAN ABSOLUTE AUTO 0.01 K/mm3 (0.00-0.10); IMMATURE GRAN PERCENT AUTO 0 % (0-1); LYMPHOCYTES ABSOLUTE AUTO 1.21 K/mm3 (0.84-5.20); LYMPHOCYTES PERCENT AUTO 25 % (21-46); MONOCYTES ABSOLUTE AUTO 0.31 K/mm3 (0.16-1.47); MONOCYTES PERCENT AUTO 6 % (4-13); Mean Corpuscular HGB 30.9 pg (26.0-34.0); Mean Corpuscular HGB Conc 32.2 g/dL (31.5-36.5); Mean Corpuscular Volume 96 fL (80-100); Mean Platelet Volume 10.1 fL (9.1-12.4); NEUTROPHILS ABSOLUTE AUTO 3.31 K/mm3 (1.96-9.15); NEUTROPHILS PERCENT AUTO 68 % (41-73); Platelet Count 108 K/mm3 (150-400); RDW Coefficient Variation 17.9 % (11.7-14.2); RDW Standard Deviation 63.2 fL (35.1-46.3); Red Blood Cell Count 4.05 M/mm3 (4.30-5.90); White Blood Cell Count 4.85 K/mm3 (4.00-11.30)
[2024-02-10 10:31] LABS: Albumin, Blood 3.6 g/dL (3.4-5.0); Albumin/Globulin Ratio 1.4 (0.8-1.8); Bilirubin, Total 0.6 mg/dL (0.1-1.0); Bun/Creatinine Ratio 20.5 (12.0-20.0); Calcium, Blood 8.2 mg/dL (8.5-10.1); Creatinine, Blood 0.83 mg/dL (0.60-1.20); Globulin, Blood 2.5 g/dL (2.2-4.0); Potassium, Blood 4.4 mmol/L (3.5-5.5); Total Protein, Blood 6.1 g/dL (6.4-8.2)
[2024-02-10] MEDS ORDERED: Mag Hydrox/AL Hydrox/Simeth 30 ML UDC PO ONE (11:00)
[2024-02-10] MEDS ORDERED: Lidocaine 2% Viscous Soln 15 ML UDC PO ONE (11:00)
[2024-02-10 13:00] VITALS: BP 110/75
== END 2024-02-10 13:00 | disposition home or self-care (01) ==
LOC: ER 09:07
PROVIDERS: Emergency Medicine
DX: R07.89 Other chest pain (principal); K44.9 Diaphragmatic hernia without obstruction or gangrene; Z87.891 Personal history of nicotine dependence; Z88.6 Allergy status to analgesic agent; Z79.01 Long term (current) use of anticoagulants; Z79.899 Other long term (current) drug therapy
CPT/HCPCS: 71046; 80053; 83690; 84484; 85025; 93005; 93010; 99285-25; A9270

== ENCOUNTER → 2024-04-26 | Outpatient (CLI) | payer OTHER ==
[~2024-04-26] MED LIST changes: +Amitriptyline H10 MG PO; +ESCI10 PO
[2024-04-26 18:04] LABS: Source, Urine Voided
[2024-04-26 18:49] LABS: Appearance, Urine Hazy (Clear); Bilirubin, Urine Neg (Neg); Blood, Urine 2+ (Neg); Color, Urine Yellow (P-Yellow); Glucose Qualitative, Urine Neg (Neg); Ketones, Urine Neg (Neg); Leukocyte Esterase, Urine 3+ (Neg); Nitrite, Urine Pos (Neg); Protein, Urine 1+ (Neg); Specific Gravity, Urine 1.015 (1.003-1.022); Urobilinogen, Urine NORM (Normal); pH, Urine 6.5 (5.0-8.0)
[2024-04-26 20:02] LABS: Bacteria Many /hpf; Squamous Epithelial Cells Few /hpf (Few); White Blood Cells, Urine 50-100 /hpf (0-5)
== END ==
LOC: LAB 18:01 → LAB SHORT 18:01
PROVIDERS: Physician Assistant
DX: N39.0 Urinary tract infection, site not specified (principal)
CPT/HCPCS: 81001; 87077; 87086; 87186

== ENCOUNTER 2024-06-11 16:45 | Emergency (ER) | payer OTHER ==
[~2024-06-11] VITALS: Ht 177.8 cm; Wt 70.3 kg
[2024-06-11] MEDS ORDERED: Diphth,Pertuss(Acell),Tet Vac 0.5 ML VIAL IM ONE (17:40)
[2024-06-11] MEDS ORDERED: Morphine Sulfate 4 MG/1 ML Injection IV ONE ×2 (17:45→19:30)
[2024-06-11] MEDS ORDERED: ACET500 PO (19:28)
[2024-06-11 19:30] VITALS: BP 120/79
== END 2024-06-11 20:23 | disposition home or self-care (01) ==
LOC: ER 16:45
DX: S01.01XA Laceration without foreign body of scalp, initial encounter (principal); S01.81XA Laceration without foreign body of other part of head, initial encounter; R93.89 Abnormal findings on diagnostic imaging of other specified body structures; V89.9XXA Person injured in unspecified vehicle accident, initial encounter; Z88.6 Allergy status to analgesic agent; Z79.899 Other long term (current) drug therapy; G40.909 Epilepsy, unspecified, not intractable, without status epilepticus; Z87.891 Personal history of nicotine dependence
CPT/HCPCS: 12011; 70450; 72125; 72170; 73030; 90471; 90715; 96374-59; 96376-59; 99284-25; J2270

== ENCOUNTER → 2024-08-10 | Outpatient (CLI) | payer OTHER ==
[~2024-08-10] MED LIST changes: +ACET500 PO
[2024-08-10 10:43] LABS: Source, Urine Clean Catch
[2024-08-10 13:00] LABS: Appearance, Urine Hazy (Clear); Bilirubin, Urine Neg (Neg); Blood, Urine 5+ (Neg); Color, Urine Red (P-Yellow); Glucose Qualitative, Urine Neg (Neg); Ketones, Urine Neg (Neg); Leukocyte Esterase, Urine 3+ (Neg); Nitrite, Urine Neg (Neg); Protein, Urine 3+ (Neg); Specific Gravity, Urine 1.015 (1.003-1.022); Urobilinogen, Urine NORM (Normal); pH, Urine 6.5 (5.0-8.0)
[2024-08-10 13:18] LABS: Red Blood Cells, Urine TNTC /hpf (0-2); Squamous Epithelial Cells Rare /hpf (Few); White Blood Cells, Urine TNTC /hpf (0-5)
[2024-08-10 13:19] LABS: Bacteria Many /hpf
== END ==
LOC: LAB SHORT 10:33 → LAB 10:33
PROVIDERS: Physician Assistant
DX: N39.0 Urinary tract infection, site not specified (principal); R31.9 Hematuria, unspecified
CPT/HCPCS: 81001; 87077; 87086; 87186

== ENCOUNTER 2024-08-30 11:52 | Emergency (ER) | payer OTHER ==
[~2024-08-30] VITALS: Ht 175.3 cm; Wt 72.6 kg
[2024-08-30 13:06] LABS: BASOPHILS ABSOLUTE AUTO 0.01 K/mm3 (0.00-0.23); BASOPHILS PERCENT AUTO 0 % (0-2); EOSINOPHILS ABSOLUTE AUTO 0.01 K/mm3 (0.00-0.68); EOSINOPHILS PERCENT AUTO 0 % (0-6); Hematocrit 45.5 % (37.0-53.0); Hemoglobin 14.7 g/dL (13.5-17.5); IMMATURE GRAN ABSOLUTE AUTO 0.01 K/mm3 (0.00-0.10); IMMATURE GRAN PERCENT AUTO 0 % (0-1); LYMPHOCYTES ABSOLUTE AUTO 1.36 K/mm3 (0.84-5.20); LYMPHOCYTES PERCENT AUTO 22 % (21-46); MONOCYTES ABSOLUTE AUTO 0.67 K/mm3 (0.16-1.47); MONOCYTES PERCENT AUTO 11 % (4-13); Mean Corpuscular HGB 30.5 pg (26.0-34.0); Mean Corpuscular HGB Conc 32.3 g/dL (31.5-36.5); Mean Corpuscular Volume 94 fL (80-100); Mean Platelet Volume 11.4 fL (9.1-12.4); NEUTROPHILS ABSOLUTE AUTO 4.25 K/mm3 (1.96-9.15); NEUTROPHILS PERCENT AUTO 67 % (41-73); Platelet Count 109 K/mm3 (150-400); RDW Coefficient Variation 15.8 % (11.7-14.2); Red Blood Cell Count 4.82 M/mm3 (4.30-5.90); White Blood Cell Count 6.31 K/mm3 (4.00-11.30)
[2024-08-30 13:53] LABS: Albumin, Blood 3.9 g/dL (3.4-5.0); Albumin/Globulin Ratio 1.3 (0.8-1.8); Bilirubin, Total 0.7 mg/dL (0.1-1.0); Bun/Creatinine Ratio 21.7 (12.0-20.0); Calcium, Blood 8.9 mg/dL (8.5-10.1); Creatinine, Blood 0.74 mg/dL (0.60-1.20); Globulin, Blood 3.1 g/dL (2.2-4.0); Potassium, Blood 4.8 mmol/L (3.5-5.5)
[2024-08-30 14:59] LABS: Source, Urine Clean Catch
[2024-08-30 15:09] LABS: Appearance, Urine Bloody (Clear); Bilirubin, Urine Neg (Neg); Blood, Urine 5+ (Neg); Color, Urine Red (P-Yellow); Glucose Qualitative, Urine Neg (Neg); Ketones, Urine 1+ (Neg); Leukocyte Esterase, Urine 3+ (Neg); Nitrite, Urine Pos (Neg); Protein, Urine 3+ (Neg); Specific Gravity, Urine 1.015 (1.003-1.022); Urobilinogen, Urine 1+ (Normal)
[2024-08-30 15:20] LABS: Red Blood Cells, Urine TNTC /hpf (0-2); White Blood Cells, Urine TNTC /hpf (0-5)
[2024-08-30 15:21] LABS: Bacteria Many /hpf; Squamous Epithelial Cells Not Seen /hpf (Few)
[2024-08-30 15:30] VITALS: BP 105/71
[2024-08-30] MEDS ORDERED: CefTRIAXone Sodium 1,000 MG in NS 50 ML IV ONE (15:30)
[2024-08-30] MEDS ORDERED: Phenazopyridine HCl 100 MG Tab PO ONE (15:40)
[2024-08-30] MEDS ORDERED: Pyridium100 MG PO (16:57)
[2024-08-30] MEDS ORDERED: CEPH500 PO (16:57)
== END 2024-08-30 17:35 | disposition home or self-care (01) ==
LOC: ER 11:52
PROVIDERS: Physician Assistant
DX: N39.0 Urinary tract infection, site not specified (principal); R31.9 Hematuria, unspecified; I69.351 Hemiplegia and hemiparesis following cerebral infarction affecting right dominant side; G40.909 Epilepsy, unspecified, not intractable, without status epilepticus; Z87.891 Personal history of nicotine dependence; Z88.6 Allergy status to analgesic agent; Z79.01 Long term (current) use of anticoagulants; Z79.899 Other long term (current) drug therapy
CPT/HCPCS: 74177; 80053; 81001; 85025; 96365-59; 99284-25; A9270; J0696; Q9967

== ENCOUNTER 2024-10-23 09:13 | Emergency (ER) | payer OTHER ==
[~2024-10-23] VITALS: Ht 177.8 cm; Wt 72.6 kg
[~2024-10-23 09:13] MED LIST changes: +Pyridium100 MG PO
[2024-10-23 10:20] LABS: BASOPHILS ABSOLUTE AUTO 0.01 K/mm3 (0.00-0.23); BASOPHILS PERCENT AUTO 0 % (0-2); EOSINOPHILS PERCENT AUTO 0 % (0-6); Hematocrit 42.4 % (37.0-53.0); Hemoglobin 13.6 g/dL (13.5-17.5); IMMATURE GRAN ABSOLUTE AUTO 0.01 K/mm3 (0.00-0.10); IMMATURE GRAN PERCENT AUTO 0 % (0-1); LYMPHOCYTES ABSOLUTE AUTO 1.23 K/mm3 (0.84-5.20); LYMPHOCYTES PERCENT AUTO 21 % (21-46); MONOCYTES ABSOLUTE AUTO 0.48 K/mm3 (0.16-1.47); MONOCYTES PERCENT AUTO 8 % (4-13); Mean Corpuscular HGB 29.9 pg (26.0-34.0); Mean Corpuscular HGB Conc 32.1 g/dL (31.5-36.5); Mean Corpuscular Volume 93 fL (80-100); Mean Platelet Volume 10.9 fL (9.1-12.4); NEUTROPHILS ABSOLUTE AUTO 4.17 K/mm3 (1.96-9.15); NEUTROPHILS PERCENT AUTO 71 % (41-73); Platelet Count 94 K/mm3 (150-400); RDW Coefficient Variation 17.2 % (11.7-14.2); RDW Standard Deviation 58.9 fL (35.1-46.3); Red Blood Cell Count 4.55 M/mm3 (4.30-5.90)
[2024-10-23 10:44] LABS: Albumin, Blood 3.7 g/dL (3.4-5.0); Albumin/Globulin Ratio 1.2 (0.8-1.8); Bilirubin, Total 0.5 mg/dL (0.1-1.0); Calcium, Blood 8.7 mg/dL (8.5-10.1); Creatinine, Blood 0.9 mg/dL (0.60-1.20); Potassium, Blood 4.6 mmol/L (3.5-5.5); Total Protein, Blood 6.7 g/dL (6.4-8.2)
[2024-10-23] MEDS ORDERED: Lidocaine 2% Jelly Uro-Jet UR ONE (12:00)
[2024-10-23 12:19] LABS: Source, Urine Foley catheter
[2024-10-23 12:25] LABS: Appearance, Urine Cloudy (Clear); Bilirubin, Urine Neg (Neg); Blood, Urine 5+ (Neg); Color, Urine Yellow (P-Yellow); Glucose Qualitative, Urine Neg (Neg); Ketones, Urine Neg (Neg); Leukocyte Esterase, Urine 3+ (Neg); Nitrite, Urine Neg (Neg); Protein, Urine 2+ (Neg); Urobilinogen, Urine NORM (Normal)
[2024-10-23 12:36] LABS: Bacteria Many /hpf; Red Blood Cells, Urine TNTC /hpf (0-2); Squamous Epithelial Cells Few /hpf (Few)
[2024-10-23] MEDS ORDERED: CefTRIAXone Sodium 1,000 MG in NS 100 ML IV ONE (12:50)
[2024-10-23] MEDS ORDERED: CEPH500 PO (14:28)
[2024-10-23 15:09] VITALS: BP 116/79
== END 2024-10-23 15:11 | disposition home or self-care (01) ==
LOC: ER 09:13
PROVIDERS: Physician Assistant
DX: N39.0 Urinary tract infection, site not specified (principal); Z87.891 Personal history of nicotine dependence; Z86.73 Personal history of transient ischemic attack (TIA), and cerebral infarction without residual deficits; Z79.899 Other long term (current) drug therapy; Z88.6 Allergy status to analgesic agent
CPT/HCPCS: 36415; 51702; 51798; 74177; 80053; 81001; 83690; 85025; 87077; 87086; 87186; 96365-59; 99284-25; J0696; Q9967

== ENCOUNTER 2024-12-06 02:21 | Emergency (ER) | payer OTHER ==
[~2024-12-06] VITALS: Ht 177.8 cm; Wt 77.1 kg
[2024-12-06 02:44] LABS: Source, Urine Foley catheter
[2024-12-06 02:51] LABS: Appearance, Urine Hazy (Clear); Bilirubin, Urine Neg (Neg); Blood, Urine 5+ (Neg); Color, Urine Yellow (P-Yellow); Glucose Qualitative, Urine Neg (Neg); Ketones, Urine Neg (Neg); Leukocyte Esterase, Urine 3+ (Neg); Nitrite, Urine Pos (Neg); Protein, Urine 1+ (Neg); Urobilinogen, Urine NORM (Normal)
[2024-12-06] MEDS ORDERED: CEPH500 PO (03:00)
[2024-12-06] MEDS ORDERED: Cephalexin Monohydrate 500 MG Cap PO ONE (03:00)
[2024-12-06] MEDS ORDERED: BISA5EC PO (03:03)
[2024-12-06] MEDS ORDERED: GUAI600T33 PO (03:05)
[2024-12-06] MEDS ORDERED: DULCOLAX400 MG/5 M PO (03:06)
[2024-12-06] MEDS ORDERED: LOPE2C PO (03:06)
[2024-12-06 03:18] LABS: Red Blood Cells, Urine 50-100 /hpf (0-2); Squamous Epithelial Cells Not Seen /hpf (Few); White Blood Cells, Urine 50-100 /hpf (0-5)
[2024-12-06 03:19] LABS: Amorphous Light (0-Heavy); Bacteria Many /hpf
[2024-12-06 03:33] VITALS: BP 118/80
== END 2024-12-06 04:00 | disposition home or self-care (01) ==
LOC: ER 02:21
PROVIDERS: Student in an Organized Health Care Education/Training Program
DX: T83.091A Other mechanical complication of indwelling urethral catheter, initial encounter (principal); T83.511A Infection and inflammatory reaction due to indwelling urethral catheter, initial encounter; N39.0 Urinary tract infection, site not specified; I10 Essential (primary) hypertension; G40.909 Epilepsy, unspecified, not intractable, without status epilepticus; I69.351 Hemiplegia and hemiparesis following cerebral infarction affecting right dominant side; N40.1 Benign prostatic hyperplasia with lower urinary tract symptoms; R33.8 Other retention of urine; Z87.891 Personal history of nicotine dependence; Z88.6 Allergy status to analgesic agent; Z79.01 Long term (current) use of anticoagulants; Z79.899 Other long term (current) drug therapy; Z59.89 Other problems related to housing and economic circumstances
CPT/HCPCS: 51702; 81001; 87077; 87086; 87186; 99283-25; A9270

== ENCOUNTER 2024-12-31 09:19 | Emergency (ER) | payer OTHER ==
[~2024-12-31] VITALS: Ht 175.3 cm; Wt 77.1 kg
[~2024-12-31 09:19] MED LIST changes: +DULCOLAX400 MG/5 M PO; +LOPE2C PO
[2024-12-31 09:45] LABS: BASOPHILS ABSOLUTE AUTO 0.01 K/mm3 (0.00-0.23); BASOPHILS PERCENT AUTO 0 % (0-2); EOSINOPHILS PERCENT AUTO 0 % (0-6); Hematocrit 38.4 % (37.0-53.0); Hemoglobin 12.4 g/dL (13.5-17.5); IMMATURE GRAN ABSOLUTE AUTO 0.01 K/mm3 (0.00-0.10); IMMATURE GRAN PERCENT AUTO 0 % (0-1); LYMPHOCYTES ABSOLUTE AUTO 0.69 K/mm3 (0.84-5.20); LYMPHOCYTES PERCENT AUTO 14 % (21-46); MONOCYTES ABSOLUTE AUTO 0.83 K/mm3 (0.16-1.47); MONOCYTES PERCENT AUTO 17 % (4-13); Mean Corpuscular HGB 29.5 pg (26.0-34.0); Mean Corpuscular HGB Conc 32.3 g/dL (31.5-36.5); Mean Corpuscular Volume 91 fL (80-100); Mean Platelet Volume 9.9 fL (9.1-12.4); NEUTROPHILS ABSOLUTE AUTO 3.34 K/mm3 (1.96-9.15); NEUTROPHILS PERCENT AUTO 69 % (41-73); Platelet Count 96 K/mm3 (150-400); RDW Coefficient Variation 14.7 % (11.7-14.2); RDW Standard Deviation 49.8 fL (35.1-46.3); White Blood Cell Count 4.88 K/mm3 (4.00-11.30)
[2024-12-31 10:10] LABS: Albumin, Blood 3.2 g/dL (3.4-5.0); Bilirubin, Total 0.4 mg/dL (0.1-1.0); Bun/Creatinine Ratio 19.5 (12.0-20.0); Calcium, Blood 7.9 mg/dL (8.5-10.1); Creatinine, Blood 0.82 mg/dL (0.60-1.20); Globulin, Blood 3.1 g/dL (2.2-4.0); Total Protein, Blood 6.3 g/dL (6.4-8.2)
[2024-12-31 10:37] LABS: Source, Urine Foley catheter
[2024-12-31 10:53] LABS: Appearance, Urine Cloudy (Clear); Bilirubin, Urine Neg (Neg); Blood, Urine 2+ (Neg); Color, Urine Yellow (P-Yellow); Glucose Qualitative, Urine Neg (Neg); Ketones, Urine Neg (Neg); Leukocyte Esterase, Urine 3+ (Neg); Nitrite, Urine Pos (Neg); Protein, Urine 1+ (Neg); Specific Gravity, Urine 1.015 (1.003-1.022); Urobilinogen, Urine NORM (Normal)
[2024-12-31] MEDS ORDERED: BACLOFEN5 M1 PO (10:54)
[2024-12-31] MEDS ORDERED: LevoFLOXacin 750 MG/D5W 150ML 150 ML IV ONE (10:55)
[2024-12-31 11:05] LABS: Amorphous Mod (0-Heavy)
[2024-12-31 11:06] LABS: Triple Phosphate Crystals Many /hpf
[2024-12-31 11:07] LABS: Squamous Epithelial Cells Not Seen /hpf (Few)
[2024-12-31 11:10] LABS: Bacteria Many /hpf
[2024-12-31] MEDS ORDERED: Lidocaine 2% Jelly Uro-Jet UR ONE (11:30)
[2024-12-31] MEDS ORDERED: LEVFLO500 PO (11:42)
[2024-12-31 14:25] VITALS: BP 113/75
== END 2024-12-31 14:30 | disposition home or self-care (01) ==
LOC: ER 09:19
PROVIDERS: Student in an Organized Health Care Education/Training Program
DX: N45.3 Epididymo-orchitis (principal); Z88.8 Allergy status to other drugs, medicaments and biological substances; Z79.899 Other long term (current) drug therapy; Z79.01 Long term (current) use of anticoagulants; Z79.4 Long term (current) use of insulin; Z87.891 Personal history of nicotine dependence
CPT/HCPCS: 76870; 80053; 81001; 85025; 87086; 96365; 96366; 99284-25; J1956

== ENCOUNTER 2025-02-02 23:55 | Emergency (ER) | payer OTHER ==
[~2025-02-02] VITALS: Wt 72.6 kg
[~2025-02-02 23:55] MED LIST changes: +BACLOFEN5 M1 PO; +LEVFLO500 PO
[2025-02-03 01:42] LABS: Source, Urine Clean Catch
[2025-02-03 01:48] LABS: Bilirubin, Urine Neg (Neg); Blood, Urine 5+ (Neg); Glucose Qualitative, Urine Neg (Neg); Ketones, Urine Neg (Neg); Leukocyte Esterase, Urine 2+ (Neg); Nitrite, Urine Neg (Neg); Protein, Urine 2+ (Neg); Specific Gravity, Urine 1.005 (1.003-1.022); Urobilinogen, Urine NORM (Normal)
[2025-02-03 01:52] VITALS: BP 108/91
[2025-02-03 02:01] LABS: Appearance, Urine Hazy (Clear); Color, Urine Red (P-Yellow)
[2025-02-03 02:03] LABS: Bacteria Few /hpf; Red Blood Cells, Urine TNTC /hpf (0-2); Squamous Epithelial Cells Rare /hpf (Few); White Blood Cells, Urine 25-50 /hpf (0-5)
== END 2025-02-03 03:04 | disposition home or self-care (01) ==
LOC: ER 23:55
PROVIDERS: Emergency Medicine
DX: T83.091A Other mechanical complication of indwelling urethral catheter, initial encounter (principal); Z87.891 Personal history of nicotine dependence; Z86.73 Personal history of transient ischemic attack (TIA), and cerebral infarction without residual deficits; Z79.899 Other long term (current) drug therapy; Z88.6 Allergy status to analgesic agent
CPT/HCPCS: 81001; 87077; 87086; 87186; 99283

== ENCOUNTER 2025-02-19 13:57 | Emergency (ER) | payer OTHER ==
[~2025-02-19] VITALS: Ht 177.8 cm; Wt 77.1 kg
[2025-02-19 15:21] LABS: BASOPHILS ABSOLUTE AUTO 0.02 K/mm3 (0.00-0.23); BASOPHILS PERCENT AUTO 0 % (0-2); EOSINOPHILS PERCENT AUTO 0 % (0-6); Hematocrit 40.4 % (37.0-53.0); Hemoglobin 13.2 g/dL (13.5-17.5); IMMATURE GRAN ABSOLUTE AUTO 0.02 K/mm3 (0.00-0.10); IMMATURE GRAN PERCENT AUTO 0 % (0-1); LYMPHOCYTES ABSOLUTE AUTO 1.31 K/mm3 (0.84-5.20); LYMPHOCYTES PERCENT AUTO 17 % (21-46); MONOCYTES ABSOLUTE AUTO 0.81 K/mm3 (0.16-1.47); MONOCYTES PERCENT AUTO 11 % (4-13); Mean Corpuscular HGB 28.8 pg (26.0-34.0); Mean Corpuscular HGB Conc 32.7 g/dL (31.5-36.5); Mean Corpuscular Volume 88 fL (80-100); Mean Platelet Volume 10.7 fL (9.1-12.4); NEUTROPHILS ABSOLUTE AUTO 5.47 K/mm3 (1.96-9.15); NEUTROPHILS PERCENT AUTO 72 % (41-73); Platelet Count 113 K/mm3 (150-400); RDW Standard Deviation 51.6 fL (35.1-46.3); Red Blood Cell Count 4.59 M/mm3 (4.30-5.90); White Blood Cell Count 7.63 K/mm3 (4.00-11.30)
[2025-02-19 15:33] LABS: Albumin, Blood 3.2 g/dL (3.4-5.0); Albumin/Globulin Ratio 1.2 (0.8-1.8); Bilirubin, Total 0.3 mg/dL (0.1-1.0); Bun/Creatinine Ratio 19.8 (12.0-20.0); Creatinine, Blood 0.76 mg/dL (0.60-1.20); Globulin, Blood 2.6 g/dL (2.2-4.0); Potassium, Blood 3.7 mmol/L (3.5-5.5); Total Protein, Blood 5.8 g/dL (6.4-8.2)
[2025-02-19] MEDS ORDERED: NS 1,000 ML IV SCH (17:20)
[2025-02-19 17:30] VITALS: BP 108/69
== END 2025-02-19 17:30 | disposition home or self-care (01) ==
LOC: ER 13:57
PROVIDERS: Emergency Medicine
DX: R07.89 Other chest pain (principal); N40.0 Benign prostatic hyperplasia without lower urinary tract symptoms; Z88.8 Allergy status to other drugs, medicaments and biological substances; Z79.899 Other long term (current) drug therapy; Z79.02 Long term (current) use of antithrombotics/antiplatelets; Z86.73 Personal history of transient ischemic attack (TIA), and cerebral infarction without residual deficits; Z87.891 Personal history of nicotine dependence
CPT/HCPCS: 80053; 83880; 84484; 85025; 93005; 93010; 99285-25

== ENCOUNTER 2025-02-26 18:46 | Emergency (ER) | payer OTHER ==
[~2025-02-26] VITALS: Ht 170.2 cm; Wt 65.8 kg
[2025-02-26 20:42] LABS: Source, Urine Clean Catch
[2025-02-26 20:45] LABS: Appearance, Urine Turbid (Clear); Bilirubin, Urine Neg (Neg); Blood, Urine 5+ (Neg); Color, Urine Red (P-Yellow); Glucose Qualitative, Urine Neg (Neg); Ketones, Urine 1+ (Neg); Leukocyte Esterase, Urine Neg (Neg); Nitrite, Urine Neg (Neg); Protein, Urine 4+ (Neg); Specific Gravity, Urine 1.015 (1.003-1.022); Urobilinogen, Urine NORM (Normal)
[2025-02-26 21:00] VITALS: BP 130/74
[2025-02-26 21:01] LABS: Amorphous Light (0-Heavy); Bacteria Few /hpf; Red Blood Cells, Urine TNTC /hpf (0-2); Squamous Epithelial Cells Not Seen /hpf (Few)
== END 2025-02-26 21:21 | disposition home or self-care (01) ==
LOC: ER 18:46
PROVIDERS: Emergency Medicine
DX: T83.091A Other mechanical complication of indwelling urethral catheter, initial encounter (principal); R31.0 Gross hematuria; N40.1 Benign prostatic hyperplasia with lower urinary tract symptoms; I69.351 Hemiplegia and hemiparesis following cerebral infarction affecting right dominant side; G40.909 Epilepsy, unspecified, not intractable, without status epilepticus; Z87.891 Personal history of nicotine dependence; Z88.6 Allergy status to analgesic agent; Z79.01 Long term (current) use of anticoagulants; Z79.899 Other long term (current) drug therapy
CPT/HCPCS: 51702; 51798; 81001; 87077; 87086; 87186; 99284

== ENCOUNTER → 2025-03-03 | Outpatient (CLI) | payer OTHER | LOC: LAB 19:20 → LAB SHORT 19:20 | DX: N39.0 Urinary tract infection, site not specified (principal) | CPT/HCPCS: 87077; 87086; 87186 ==

== ENCOUNTER 2025-03-26 11:16 | Emergency (ER) | payer OTHER ==
[~2025-03-26] VITALS: Ht 175.3 cm; Wt 72.6 kg
[2025-03-26 12:02] VITALS: BP 101/78
[2025-03-26] MEDS ORDERED: Prochlorperazine Edisylate 10 mg Vial IV ONE (12:10)
[2025-03-26] MEDS ORDERED: DiphenhydrAMINE HCl 50 MG/ML 1ML Vial IV ONE (12:15)
[2025-03-26] MEDS ORDERED: Dexamethasone Sod Phos 10 MG/ML 1ML VIAL IV ONE (12:15)
[2025-03-26] MEDS ORDERED: LORazepam 2 MG/ML 1ML Injection IV ONE (13:25)
== END 2025-03-26 14:21 | disposition home or self-care (01) ==
LOC: ER 11:16
DX: G43.909 Migraine, unspecified, not intractable, without status migrainosus (principal); G40.909 Epilepsy, unspecified, not intractable, without status epilepticus; I69.351 Hemiplegia and hemiparesis following cerebral infarction affecting right dominant side; N40.0 Benign prostatic hyperplasia without lower urinary tract symptoms; Z87.891 Personal history of nicotine dependence; Z88.6 Allergy status to analgesic agent; Z79.899 Other long term (current) drug therapy
CPT/HCPCS: 70450; 96374; 96375; 99284-25; J0780; J1100; J1200

== ENCOUNTER 2025-05-25 21:38 | Emergency (ER) | payer OTHER ==
[~2025-05-25] VITALS: Ht 177.8 cm; Wt 72.6 kg
[2025-05-25] MEDS ORDERED: HYDROcodone 10-APAP 325 TAB PO ONE (22:35)
[2025-05-25 23:00] LABS: Source, Urine Clean Catch
[2025-05-25 23:03] LABS: Bilirubin, Urine Neg (Neg); Color, Urine Amber (P-Yellow); Glucose Qualitative, Urine Neg (Neg); Ketones, Urine Neg (Neg); Leukocyte Esterase, Urine 3+ (Neg); Protein, Urine 3+ (Neg); Specific Gravity, Urine 1.005 (1.003-1.022); Urobilinogen, Urine NORM (Normal)
[2025-05-25 23:30] LABS: BASOPHILS ABSOLUTE AUTO 0.01 K/mm3 (0.00-0.23); BASOPHILS PERCENT AUTO 0 % (0-2); EOSINOPHILS ABSOLUTE AUTO 0.01 K/mm3 (0.00-0.68); EOSINOPHILS PERCENT AUTO 0 % (0-6); Hematocrit 37.2 % (37.0-53.0); Hemoglobin 11.6 g/dL (13.5-17.5); IMMATURE GRAN ABSOLUTE AUTO 0.02 K/mm3 (0.00-0.10); IMMATURE GRAN PERCENT AUTO 0 % (0-1); LYMPHOCYTES ABSOLUTE AUTO 0.96 K/mm3 (0.84-5.20); LYMPHOCYTES PERCENT AUTO 12 % (21-46); MONOCYTES ABSOLUTE AUTO 1.10 K/mm3 (0.16-1.47); MONOCYTES PERCENT AUTO 14 % (4-13); Mean Corpuscular HGB Conc 31.2 g/dL (31.5-36.5); Mean Corpuscular Volume 89 fL (80-100); NEUTROPHILS ABSOLUTE AUTO 5.98 K/mm3 (1.96-9.15); NEUTROPHILS PERCENT AUTO 74 % (41-73); NRBC ABSOLUTE 0.00 K/mm3 (0.00-0.02); NRBC Auto 0.0 /100 WBC (0.0-0.2); Platelet Count 83 K/mm3 (150-400); RDW Coefficient Variation 16.9 % (11.7-14.2); RDW Standard Deviation 54.8 fL (35.1-46.3)
[2025-05-25 23:49] LABS: Alanine Aminotransfer (ALT/SGP 14.0 U/L (12-78); Albumin, Blood 3.2 g/dL (3.4-5.0); Albumin/Globulin Ratio 0.9 (0.8-1.8); Anion Gap 8.0 mmol/L (3-11); Aspartate Aminotrans (AST/SGOT 10.0 U/L (12-37); Bilirubin, Total 0.7 mg/dL (0.1-1.0); Blood Urea Nitrogen 20.0 mg/dL (8-24); CO2, Blood 21.0 mmol/L (21-32); Calcium, Blood 8.3 mg/dL (8.5-10.1); Chloride, Blood 110.0 mmol/L (98-108); Creatinine, Blood 0.86 mg/dL (0.60-1.20); Globulin, Blood 3.5 g/dL (2.2-4.0); Glucose, Blood 118.0 mg/dL (70-99); Potassium, Blood 3.6 mmol/L (3.5-5.5); Sodium, Blood 135.0 mmol/L (136-145); Total Protein, Blood 6.7 g/dL (6.4-8.2)
[2025-05-26 00:48] LABS: CORONAVIRUS COVID-19 AG Negative (NEGATIVE)
[2025-05-26 00:54] LABS: Source, Urine Straight Cath
[2025-05-26 00:59] LABS: Bilirubin, Urine Neg (Neg); Glucose Qualitative, Urine Neg (Neg); Ketones, Urine Neg (Neg); Leukocyte Esterase, Urine 3+ (Neg); Protein, Urine 2+ (Neg); Specific Gravity, Urine 1.005 (1.003-1.022); Urobilinogen, Urine NORM (Normal)
[2025-05-26 01:04] LABS: Color, Urine Pale Yellow (P-Yellow)
[2025-05-26 01:06] LABS: White Blood Cells, Urine 25-50 /hpf (0-5)
[2025-05-26] MEDS ORDERED: CEFP200 PO (01:07)
[2025-05-26] MEDS ORDERED: CefTRIAXone Sodium 1,000 MG in NS 100 ML IV ONE (01:10)
[2025-05-26 01:45] VITALS: BP 105/79
== END 2025-05-26 01:50 | disposition home or self-care (01) ==
LOC: ER 21:38
PROVIDERS: Emergency Medicine
DX: N39.0 Urinary tract infection, site not specified (principal); D64.9 Anemia, unspecified; Z88.8 Allergy status to other drugs, medicaments and biological substances; Z79.899 Other long term (current) drug therapy
CPT/HCPCS: 51701; 71045; 80053; 81001; 83605; 85025; 87077; 87086; 87186; 87428-QW; 96365; 99284-25; J0696

== ENCOUNTER → 2025-07-25 | Outpatient (CLI) | payer OTHER ==
[~2025-07-25] MED LIST changes: +CEFP200 PO
[2025-07-25 11:24] LABS: Source, Urine Clean Catch
[2025-07-25 12:46] LABS: Bilirubin, Urine Neg (Neg); Color, Urine Red (P-Yellow); Glucose Qualitative, Urine Neg (Neg); Ketones, Urine 2+ (Neg); Leukocyte Esterase, Urine 3+ (Neg); Protein, Urine 3+ (Neg); Specific Gravity, Urine 1.015 (1.003-1.022); Urobilinogen, Urine NORM (Normal)
[2025-07-25 12:53] LABS: Red Blood Cells, Urine TNTC /hpf (0-2); White Blood Cells, Urine TNTC /hpf (0-5)
== END ==
LOC: LAB SHORT 11:21 → LAB 11:21
PROVIDERS: Physician Assistant
DX: N39.0 Urinary tract infection, site not specified (principal)
CPT/HCPCS: 81001; 87077; 87086; 87186

== ENCOUNTER 2025-09-25 19:53 | Emergency (ER) | payer OTHER ==
[~2025-09-25] VITALS: Ht 177.8 cm; Wt 72.6 kg
[2025-09-25 20:03] VITALS: BP 115/71
[2025-09-25 20:34] LABS: BASOPHILS ABSOLUTE AUTO 0.01 K/mm3 (0.00-0.23); BASOPHILS PERCENT AUTO 0 % (0-2); EOSINOPHILS ABSOLUTE AUTO 0.01 K/mm3 (0.00-0.68); EOSINOPHILS PERCENT AUTO 0 % (0-6); Hematocrit 35.0 % (37.0-53.0); Hemoglobin 11.1 g/dL (13.5-17.5); IMMATURE GRAN ABSOLUTE AUTO 0.03 K/mm3 (0.00-0.10); IMMATURE GRAN PERCENT AUTO 1 % (0-1); LYMPHOCYTES ABSOLUTE AUTO 0.42 K/mm3 (0.84-5.20); LYMPHOCYTES PERCENT AUTO 6 % (21-46); MONOCYTES ABSOLUTE AUTO 1.02 K/mm3 (0.16-1.47); MONOCYTES PERCENT AUTO 15 % (4-13); Mean Corpuscular HGB Conc 31.7 g/dL (31.5-36.5); Mean Corpuscular Volume 88 fL (80-100); NEUTROPHILS ABSOLUTE AUTO 5.17 K/mm3 (1.96-9.15); NEUTROPHILS PERCENT AUTO 78 % (41-73); NRBC ABSOLUTE 0.00 K/mm3 (0.00-0.02); NRBC Auto 0.0 /100 WBC (0.0-0.2); Platelet Count 74 K/mm3 (150-400); RDW Coefficient Variation 16.3 % (11.7-14.2); RDW Standard Deviation 53.0 fL (35.1-46.3)
[2025-09-25 20:56] LABS: Alanine Aminotransfer (ALT/SGP 20.0 U/L (12-78); Albumin, Blood 3.3 g/dL (3.4-5.0); Albumin/Globulin Ratio 1.1 (0.8-1.8); Anion Gap 7.0 mmol/L (3-11); Aspartate Aminotrans (AST/SGOT 20.0 U/L (12-37); Bilirubin, Total 1.0 mg/dL (0.1-1.0); Blood Urea Nitrogen 19.0 mg/dL (8-24); CO2, Blood 20.0 mmol/L (21-32); Calcium, Blood 8.2 mg/dL (8.5-10.1); Chloride, Blood 107.0 mmol/L (98-108); Creatinine, Blood 0.99 mg/dL (0.60-1.20); Globulin, Blood 2.9 g/dL (2.2-4.0); Glucose, Blood 129.0 mg/dL (70-99); Potassium, Blood 3.3 mmol/L (3.5-5.5); Sodium, Blood 131.0 mmol/L (136-145); Total Protein, Blood 6.2 g/dL (6.4-8.2)
[2025-09-25 22:28] LABS: Source, Urine Clean Catch
[2025-09-25 22:33] LABS: Bilirubin, Urine Neg (Neg); Glucose Qualitative, Urine Neg (Neg); Ketones, Urine 2+ (Neg); Leukocyte Esterase, Urine 3+ (Neg); Protein, Urine 3+ (Neg); Specific Gravity, Urine 1.005 (1.003-1.022); Urobilinogen, Urine NORM (Normal)
[2025-09-25 22:50] LABS: Color, Urine Red (P-Yellow)
[2025-09-25 22:51] LABS: Red Blood Cells, Urine TNTC /hpf (0-2); White Blood Cells, Urine 50-100 /hpf (0-5)
[2025-09-25 23:03] LABS: Influenza A, PCR NEGATIVE (NEGATIVE); Influenza B, PCR NEGATIVE (NEGATIVE); Resp Syncytial Virus, PCR NEGATIVE (NEGATIVE); SARS-Cov-2 (COVID-19) PCR, MMC NEGATIVE (NEGATIVE)
[2025-09-25] MEDS ORDERED: CefTRIAXone Sodium 2,000 MG in NS 100 ML IV ONE (23:15)
[2025-09-25] MEDS ORDERED: CEPH500 PO (23:18)
[2025-09-25] MEDS ORDERED: NS 1,000 ML IV SCH (23:35)
[2025-09-27] MEDS ORDERED: ACET500 PO (00:38)
[2025-09-27] MEDS ORDERED: ESCI20 PO (00:53)
[2025-09-27] MEDS ORDERED: METHENAMINE HIPPURAT PO (01:01)
[2025-09-27] MEDS ORDERED: ASCO500 PO (01:04)
[2025-09-27] MEDS ORDERED: ALBU90OI INH (02:15)
[2025-09-27] MEDS ORDERED: BISA10S PR (02:16)
[2025-09-27] MEDS ORDERED: Calcium Carbon500 MG PO (02:17)
[2025-09-27] MEDS ORDERED: ARTHRITIS PAIN150 GM TOP (02:18)
[2025-09-29] MEDS ORDERED: Cefpodoxime Pr100 MG PO (12:41)
== END 2025-09-26 01:54 | disposition home or self-care (01) ==
LOC: ER 19:53
PROVIDERS: Emergency Medicine
DX: N12 Tubulo-interstitial nephritis, not specified as acute or chronic (principal); I69.351 Hemiplegia and hemiparesis following cerebral infarction affecting right dominant side; Z87.891 Personal history of nicotine dependence; Z88.6 Allergy status to analgesic agent; Z79.01 Long term (current) use of anticoagulants; Z79.899 Other long term (current) drug therapy
CPT/HCPCS: 36415; 80053; 81001; 83605; 85025; 87040; 87077; 87086; 87186; 87637; 93005; 93010; 96365; 99283-25; J0696; J7030